=== PATIENT | male | born 1950 | race African-American/Black ===

== ENCOUNTER 2024-06-30 04:31 | Inpatient (IN) | payer MEDICARE, SELFPAY ==
[2024-06-29 21:56] VITALS: BP 138/96
[2024-06-29 22:22] LABS: % Basophils 0.3 % (0-2); % Eosinophils 1.7 % (0-6); % Immature Granulocytes 0.5 % (0-0.5); % Monocytes 6.4 % (1.7-9.3); % Neutrophils 77.1 % (42.2-75.2); Absolute Eosinophils 0.2 10^3/uL (0-0.7); Absolute Lymphocytes 1.2 10^3/uL (1.2-3.4); Absolute Monocytes 0.6 10^3/uL (0.1-0.6); Absolute Neutrophils 6.7 10^3/uL (1.4-6.5); Hematocrit 33.4 % (39.0-52.0); Hemoglobin 11.5 g/dL (13.0-18.0); Mean Corp Hgb Conc. 34.4 g/dL (33.0-37.0); Mean Corpuscular Hgb 28.4 pg (27.0-31.0); Mean Corpuscular Volume 82.5 fL (80.0-94.0); Mean Platelet Volume 9.3 fL (7.4-10.4); Nucleated Red Blood Cells % 0 % (-); Platelet Count 357 10^3/uL (130-400); Red Blood Cell Count 4.05 10^6/uL (4.70-6.10); White Blood Cell Count 8.7 10^3/uL (4.8-10.8)
[2024-06-29 22:34] LABS: Lactic Acid 0.9 mmol/L (0.7-2.0)
[2024-06-29 22:49] LABS: ALT (SGPT) 14 U/L (0-50); AST (SGOT) 21 U/L (17-59); Albumin 3.8 g/dl (3.5-5.0); Alkaline Phosphatase 117 U/L (38-126); Blood Urea Nitrogen 58 mg/dl (9-20); Calcium 8.5 mg/dl (8.4-10.2); Carbon Dioxide 27 mmol/L (22-30); Chloride 95 mmol/L (98-107); Glucose 394 mg/dl (70-99); Sodium 132 mmol/L (135-145); Total Bilirubin 0.4 mg/dl (0.2-1.3); Total Protein 7.2 g/dl (6.3-8.2); eGFR 24.94
[2024-06-30] VITALS (12 sets, daily range): BP systolic 126–162; BP diastolic 74–91; PULSE 83; O2SAT 99; BMI 27.1; BMI 25.6
[2024-06-30 01:34] LABS: Glucose - Point of Care 341 mg/dl (70-99)
--- NOTE | 2024-06-30 02:58 | ED.GENMED ---
History of Present Illness
General
Chief Complaint: Skin Problem
Source: patient and ambulance crew
Exam Limitations: none
Time Seen by Provider: 06/30/24 02:15
Nursing documentation reviewed up to this point in time: agreed with
History of Present Illness
History of Present Illness:
This is a 73-year-old gentleman who resides at home, alone. He has a longstanding history of insulin requiring diabetes, maintained [facility] L[facility]
He admits to neglecting follow-up with the [facility] for at least a year, has has not had routine blood work in at least a year.
He does continue to drive but only short distances to and from the grocery store.
He has history of left BKA perhaps 2 to [address] [facility]. No recurrent hospitalizations since then.
He admits to sporadically missing his insulin and presents via EMS with complaints of right lower leg wounds that began perhaps a week or 2 ago. He admits to moderate pain, has not had a fever.
No recent falls.
He denies chest pain no cough no shortness of breath. He denies dizziness nor lightheadedness.
Appetite has been fair.
He denies dysuria and urgency nor difficulty urinating. He denies abdominal pain. He states he passed a normal bowel movement yesterday.
He presents via EMS. Blood sugar elevated over 400 prehospital.
Past History
Past History
ED Past Medical History: IDDM
ED Past Surgical History: Orthopedic (Left BKA)
Social History
Tobacco: Non-smoker
Alcohol: None
Drug: None
Living: alone
Employment: Retired
Phy Exam
Physical Exam
Physical Exam:
GENERAL: 73-year-old gentleman appears his stated age, awake and alert, pleasant, appears in no acute distress.
EYE: pupils equal and reactive. anicteric
NECK: Supple, nontender, no meningismus, no significant adenopathy.
ENT: oral mucosa is moist. No rhinorrhea.
CARDIAC: Regular rate and rhythm. no murmur.
LUNGS: Clear breath sounds bilaterally, no acute respiratory distress, no wheezes/rales/rhonchi
ABDOMEN: Soft, nondistended, without focal tenderness, bladder is significantly distended to the level of umbilicus, bladder is nontender. No r/g, no cvat. normoactive BS.
NEUROLOGICAL: Alert and oriented x3, no focal neuro deficits.
SKIN: Warm and dry, normal color, there is a global confluent erythematous minimally scaly rash that encompasses the groin, phallus, bilateral anterior to medial thighs. There is superficial ulcerated wounds to the right anterior lower leg and
anterior ankle.
MUSCULOSKELETAL: Left BKA�stump is clean and dry. Right dorsalis pedis pulse is present.
PSYCH: Normal and appropriate interaction.
Course
Orders/Labs/Results
Orders:
Orders
06/29/24 22:00
Electrocardiogram (*1) Urgent
Reason for Study: Other
Other Reason for Exam: Possible Sepsis
EKG- Treatment ONCE
06/29/24 22:16
Complete Blood Count/With Diff Urgent
Comprehensive Metabolic Panel Urgent
Lactic Acid Stat
06/30/24 02:30
Dominique Placement- Treatment ONCE
Reason for insertion: Outlet obstruction
06/30/24 02:31
Add On- LAB Urgent
Tests Added?: HgbA1c
06/30/24 02:58
Urinalysis Reflex To Culture Urgent
Date Specimen was Collected: 06/30/24
Time Specimen was Collected: 02:52
Urine Microscopic Reflex Cult Urgent
Urine Culture Urgent
KAYLEE Source: U
Specimen Description:
Date Specimen was Collected: 06/30/24
Time Specimen was Collected: 02:52
06/30/24 03:09
Cardiac Monitoring- Treatment ONCE
Calcium Gluconate 1,000 mg IV NOW STA
Dextrose 50%-Water [Dextrose 50% Syringe] 12.5 grams IV [id number] PRN
Insulin Human Regular [Novolin R] 5 units IV NOW STA
Sodium Bicarbonate 50 meq IV NOW STA
06/30/24 03:11
Bedside Glucose PRE IV Insulin- HyperK+ NOW
06/30/24 04:17
Admit/Transfer Patient As Directed
Co-Sign Provider:
Level of Care: Inpatient admission
Assign to:: Telemetry
Physician / Group: Mikael
Diagnosis: LINDA, Urinary Retention, LE Wounds/ Cellulitis
Reason for Telemetry: Arrhythmia
Date to Stop Telemetry: 07/03/24
Time to Stop Telemetry: 11:00
Reason for Hospitalization: LINDA, Urinary Retention, LE Wounds/ Cellulitis
Expected length of stay greater than two midnights?: Yes
ELOS- Estimated Length of Stay in days: 4
I certify the patient meets the requirements for IP care: Yes
PRN Pain Medication Management As Directed
May give lesser potent ordered pain med per pt: Yes
preference::
Protocol:: Medication orders for pain may be administered in a
manner that supports deferring to patient preference
when the pt is:
- Requesting an ordered lesser potent pain medication.
Least to most potent pain medications are defined
as: acetaminophen < NSAID < tramadol < opioids
(morphine, oxycodone, hydromorphone).
- Requesting a lesser dose of the same medication IF
ORDERED.
- Requesting a less intrusive route of administration
if both routes are prescribed by the provider (PO <
IV).
06/30/24 04:18
Code Status As Directed
Resuscitation Status: Full Code
06/30/24 04:41
Bedside Glucose POST IV Insulin- HyperK+ Q1HX2,Q2HX2
06/30/24 04:54
0.9% Sodium Chloride 1000 ml [Nss] 1,000 ml IV 150 mls/hr
Acetaminophen [Tylenol] 650 mg PO Q4HPRN PRN
Dextrose 50%-Water [Dextrose 50% Syringe] 12.5 grams IV [id number] PRN
Glucagon [GlucaGen] 1 mg IM PRN PRN
Ondansetron Injectable [Zofran] 4 mg IV Q6HPRN PRN
Polyethylene Glycol Powder [Miralax] 17 grams PO DAILY PRN
06/30/24 04:54
UROLOGY CONSULT Routine
Consulting Provider: Shahriar Alcaraz
Was physician already notified: Yes
Comment: Urinary retention
WOUND/OSTOMY CONSULT Routine
Reason for Consult: RLE Wounds
Activity As Directed
Activity Level: Ambulate
With Assistance
Bedside Glucose Monitoring As Directed
Frequency: AC&HS
Additional Instructions:: Change to q6h if pt on TPN, tube feeding or not eating
EKG with chest pain [ECG as needed] As Directed
ECG as needed for:: Chest Pain
Dominique Catheter [Catheter- Indwelling] As Directed
Reason for insertion: Acute Retention
Discontinue Date/Time: 07/03/24 0600
I/O [Intake/ Output] As Directed
Frequency: Per unit guidelines
Vital Signs As Directed
Frequency: Per unit guidelines
Weight As Directed
Frequency: Daily
Oxygen Therapy [O2 Therapy] [RESP] Routine
Titrate/Wean O2 to maintain O2 sat greater than (%): 94
Ot Eval And Treat Routine
PT Consult [Pt Eval And Treat] Routine
Activity Level: Ambulate
With Assistance
DX Deep Vein Thrombosis Video Routine
06/30/24 05:00
Flush (0.9% Sodium Chloride) [Flush (Nss)] See Dose Instructions IV PER PROTOCOL
06/30/24 05:50
Basic Metabolic Panel IN AM
Complete Blood Count/No Diff IN AM
Glycohemoglobin (HgbA1c) IN AM
TSH Reflex To Free T4 Routine
06/30/24 Breakfast
2000 calorie (17 carb) Diabetic
At Your Request: Limited Participation
Does patient need a safe tray?: No
Piperacillin/Tazo 2.25 Gram [Zosyn] 2.25 grams in 50 ml IV Q6H
06/30/24 07:30
Insulin Aspart Corrective Low [Novolog Flexpen-Low Resistance] See Protocol SC AC
06/30/24 08:00
Heparin 5,000 units SC Q12
Insulin Aspart Pen [Novolog Flexpen] 8 units SC MEALS
Miconazole Nitrate [Desenex/Mitrazol/Zeasorb] See Dose Instructions TOPICAL BID
Tamsulosin [Flomax] 0.4 mg PO DAILY
07/03/24 11:00
DC Protocol for Telemetry ONCE
Abnormal Lab Results
06/29/24 06/30/24 06/30/24
22:16 01:31 02:58
RBC 4.05 L 10^6/uL
(4.70-6.10)
Hgb 11.5 L g/dL
(13.0-18.0)
Hct 33.4 L %
(39.0-52.0)
Absolute Neuts (auto) 6.7 H 10^3/uL
(1.4-6.5)
Neutrophils % 77.1 H %
(42.2-75.2)
Lymphocytes % 14.0 L %
(20.5-51.1)
Sodium 132 L mmol/L
(135-145)
Potassium 6.0 H mmol/L
(3.5-5.1)
Chloride 95 L mmol/L
(98-107)
BUN 58 H mg/dl
(9-20)
Creatinine 2.6 H mg/dL
(0.7-1.3)
Glucose 394 H mg/dl
(70-99)
Ur Occult Blood Reflex 2+ A
(Negative)
Urine RBC 3-6 A /HPF
(0-2)
Urine Bacteria (Reflex) Moderate A
(Negative)
Urine Glucose 4+ A
(Negative)
Urine Albumin (Reflex) 2+ A
(Neg - Trace)
POC Glucose 341 H mg/dl
(99)
06/30/24
03:27
RBC
Hgb
Hct
Absolute Neuts (auto)
Neutrophils %
Lymphocytes %
Sodium
Potassium
Chloride
BUN
Creatinine
Glucose
Ur Occult Blood Reflex
Urine RBC
Urine Bacteria (Reflex)
Urine Glucose
Urine Albumin (Reflex)
POC Glucose 333 H mg/dl
()
06/29/24 22:16
06/29/24 22:16
Vital Signs
Initial and Last Documented VS:
Initial Vital Signs
Temp Pulse Resp BP Pulse Ox
98.6 F 91 16 138/96 100
06/29/24 21:56 06/29/24 21:56 06/29/24 21:56 06/29/24 21:56 06/29/24 21:56
Last Documented Vital Signs
Temp Pulse Resp BP Pulse Ox
97.8 F 90 13 155/91 98
06/30/24 01:29 06/30/24 06:00 06/30/24 06:00 06/30/24 06:00 06/30/24 03:15
MDM/Problems Addressed
Differential Diagnosis Includes:
Patient presents with poorly controlled insulin requiring diabetes.
[facility] and I suspect related to transportation issues.
He presents with multiple superficial wounds to his right anterior lower leg, however foot is warm and palpable dorsalis pedis pulse.
Exam is also notable for significantly distended bladder, nontender abdomen. Bladder scan reveals greater than 2000 cc in the bladder consistent with physical exam.
Labs are notable for normal white blood cell count, mild anemia.
Creatinine elevated at 2.6 with BUN of 58. Elevated potassium of 6.0 and elevated glucose 394 without acidosis.
I have no old labs to compare but I have significant concern that acute kidney injury is related to bladder outlet obstruction. Other consideration is an element of diabetes related chronic kidney disease.
EKG shows normal sinus rhythm, minimally peaked T waves anteriorly, otherwise unremarkable.
Will plan for Dominique catheter placement.
Along with Dominique catheter we will treat acute hyperkalemia with IV insulin, bicarb and calcium.
Will initiate IV antibiotics for potential cellulitis of right lower extremity wounds.
Due to transportation insecurity, inability for prompt follow-up as well as what appears to be acute kidney injury, hyperkalemia patient is at risk for further deterioration thus requires acute hospitalization.
Chronic conditions affecting care: DM
Acute Exacerbation and/or Progression of Chronic Illness: DM
*Pulse Oximetry
Patient hypoxic: no
*EKG
Interpreted by ED Provider?: Yes
Interpretation: normal
Comparison EKG: no comparison EKG present
Rate: normal
Rhythm: sinus
[place]: left axis deviation
Interval: normal interval
QRS Pattern: poor R-wave progression
Ischemia: other (Mildly peaked T waves anteriorly)
*Digital Photo Printer Interpretation
Rate: normal
Interpretation: normal
Rhythm: sinus
*Critical Care Note
Total Time (30-74mins, 75-104mins- exclusive of procedures): Not Applicable
Patient Management
Social determinants of health affecting care: Financial situation, Poor outpatient follow-up and Poor social support
ED Attending Note
-
Portions of this chart may have been created with voice recognition software.� Occasional wrong word or��sound alike� substitutions may have occurred due to the inherent limitations of voice recognition software.
Discharge Plan
Departure
Patient Disposition: Admit
Date of Disposition: 06/30/24
Time of Disposition: 03:16
Admit to: Telemetry
Admit to doctor: Mikael
Presentation/result/management discussed w/ accepting MD/DO: Hospitalist
Condition: Serious
Discharge Problem:
poorly controlled IRDM, LINDA with hyperkalemia, acute vs chronic urinary retention, ulcerated wounds RLE, Candidiasis of genitalia
Interventions
Interventions:
*Risk Screen - Suicide Last Done: 06/29/24 21:56
*General Assessment Last Done: 06/30/24 01:29
*Neglect/Abuse Screening Last Done: 06/29/24 21:56
*ED COVID-19 Vaccine History Last Done: 06/30/24 01:29
ED-Skin Assessment Last Done: 06/30/24 01:57
[2024-06-30 03:28] LABS: Glucose - Point of Care 333 mg/dl (70-99)
[2024-06-30] MEDS: NOVOLIN R 5 UNITS IV (03:29)
[2024-06-30] MEDS: SODIUM BICARBONATE 50 MEQ IV (03:29)
[2024-06-30] MEDS: CALCIUM GLUCONATE 1000 MG IV (03:29)
[2024-06-30 03:59] LABS: Urine Albumin 2+ (Neg - Trace); Urine Bilirubin Negative (Negative); Urine Character Clear (Clear); Urine Color Yellow; Urine Glucose 4+ (Negative); Urine Ketone Negative (Negative); Urine Leukocyte Negative (Negative); Urine Nitrite Negative (Negative); Urine Occult Blood 2+ (Negative); Urine Specific Gravity 1.015 (<1.030); Urine Urobilinogen Negative (Neg - 1+)
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
[2024-06-30 04:40] LABS: Urine Squamous Cell 0-2 /LPF (Few)
[2024-06-30 04:42] LABS: Urine Amorphous Seen
[2024-06-30 04:43] LABS: Urine Bacteria Moderate (Negative)
[2024-06-30 04:44] LABS: Glucose - Point of Care 157 mg/dl (70-99)
--- NOTE | 2024-06-30 05:36 | EDRN ---
Wounds [facility] [employer]
Right Lower Extremity:
Ant lateral lozano: 16.5x10 cm
st 2 beefy w/ slough
Ant Lozano 2.5x6cm
st2 beefy red
ant ankle 10x7cm
st2 beefy red
dorsal foot 4x3cm
st2 beefy red
medial ankle 3x3cm
st2 Beefy red w/ slough and unstagble
lateral ankle 3x2cm
st2 Beefy red w/ slough and unstagable
2x blisters anterior ankle
Left Lower Extremity:
BKA
Post calf 3x1.5cm
distal amp stump: 5 scattered 0.5x0.5cm pucture like wounds stage 2
[2024-06-30 05:51] LABS: Glucose - Point of Care 151 mg/dl (70-99)
[2024-06-30] MEDS: ZOSYN 50 IV ×4 (05:53→23:22)
[2024-06-30] MEDS: NSS 1000 IV ×3 (05:54→18:45)
[2024-06-30 06:04] LABS: Hematocrit 29.6 % (39.0-52.0); Hemoglobin 10.6 g/dL (13.0-18.0); Mean Corp Hgb Conc. 35.8 g/dL (33.0-37.0); Mean Corpuscular Volume 80.9 fL (80.0-94.0); Mean Platelet Volume 9.8 fL (7.4-10.4); Platelet Count 317 10^3/uL (130-400); Red Blood Cell Count 3.66 10^6/uL (4.70-6.10); Red Cell Dist. Width 12.6 % (11.5-14.5); White Blood Cell Count 10.1 10^3/uL (4.8-10.8)
[2024-06-30 06:23] LABS: Blood Urea Nitrogen 61 mg/dl (9-20); Calcium 9.2 mg/dl (8.4-10.2); Carbon Dioxide 25 mmol/L (22-30); Chloride 100 mmol/L (98-107); Estimated Creatinine Clearance 30 ml/min; Glucose 162 mg/dl (70-99); Sodium 133 mmol/L (135-145); eGFR 28.89
[2024-06-30 06:53] LABS: TSH Reflex To Free T4 2.19 uIU/ml (0.47-4.68)
[2024-06-30 07:49] LABS: Glucose - Point of Care 164 mg/dl (70-99)
[2024-06-30] MEDS: HEPARIN 5000 UNITS SC ×2 (08:07→20:33)
[2024-06-30] MEDS: FLOMAX 0.4 MG PO (08:08)
[2024-06-30] MEDS: DESENEX/MITRAZOL/ZEASORB 1 APPLIC TOPICAL ×2 (08:09→20:32)
[2024-06-30] MEDS: LANTUS 0.2 UNITS SC (09:49)
[2024-06-30] MEDS: NOVOLOG FLEXPEN-LOW RESISTANCE 1 UNITS SC (09:51)
[2024-06-30 09:56] LABS: Glucose - Point of Care 159 mg/dl (70-99)
[2024-06-30] MEDS: NOVOLOG FLEXPEN 8 UNITS SC ×2 (09:58→13:03)
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
[2024-06-30 11:44] LABS: Glycohemoglobin (HgbA1c) 14.5 % (4.0-5.6)
--- NOTE | 2024-06-30 12:08 | WOUNDNOTE ---
LEFT STUMP WOUND
--- NOTE | 2024-06-30 12:08 | WOUNDNOTE ---
RIGHT LOWER LEG
--- NOTE | 2024-06-30 12:08 | WOUNDNOTE ---
RIGHT LOWER LEG
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
--- NOTE | 2024-06-30 12:12 | PN.DE ---
Diabetes Education
- -
06/30/24 Diabetes Education Consult
Patient admitted with RLE wounds. PMH L BKA s/p aguila, diabetes. Prior to admission was ordered novolog 10 units AC and lantus 20 units @ hs. A1C 14.5%, cr 2.3, eGFR 28.89.
Patient is awake alert and oriented able to discuss diabetes care. States he has not been taking care of his diabetes, often skips his insulin and has not been checking his glucose. He states he has a monitor and supplies but just has not been
attentive.
I discussed with him the importance of testing his glucose before each meal and HS and taking his novolog 5 to 10 minutes before each meal. He verbalized understanding.
I spoke with attending who will manage glucose and insulin at this time.
Will return to reinforce importance of glucose control to prevent further complications.
[2024-06-30 12:35] LABS: Glucose - Point of Care 286 mg/dl (70-99)
--- NOTE | 2024-06-30 12:49 | W.PN.URO.CBU ---
Today's Communication / Plan
-
teach pt bryson care please
Assessment / Plan
-
keep bryson home with bryson
Diagnosis
-
Date of Service: June 30, 2024
-
Patient Diagnosis:
chronic retention in iddm male 73 yr of age 2200cc drained with bryson pt unaware of problem
Post Op Day:
Subjective
-
cellulits leg no gu problems
Objective
-
Vital Signs
Temp Pulse Resp BP Pulse Ox
97.8 F 81 16 126/78 98
06/30/24 01:29 06/30/24 10:45 06/30/24 10:45 06/30/24 08:00 06/30/24 03:15
Intake and Output
06/29/24 06/30/24 07/01/24
06:59 06:59 06:59
Output Total 3325 / 3325 600 / 600
Balance -3325 / -3325 -600 / -600
Output:
Urine, Bryson 3325 / 3325
Urine, Voided 600 / 600
Laboratory Results
06/30/24 05:50
06/30/24 05:50
Review of Systems
-
: Difficulty Voiding
Physical Exam
-
General - well developed, well nourished, no acute distress
Chest - clear bilaterally
Abdomen - soft, non-tender, positive bowel sounds, no CVAT, no incisional pain or distention
Genitalia - normal
Rectal - normal
Skin - warm & dry with no rash
Neuro - AOx3, no motor deficits
Extremities - no clubbing, no cyanosis, no edema
Incision - clean, dry
Dressing - clean, dry, intact
Care Review
Data Reviewed
Discussed with: Hospitalist and Nursing
CT Scan: Image Pers Reviewed
[2024-06-30] MEDS: NOVOLOG FLEXPEN-LOW RESISTANCE 3 UNITS SC ×2 (13:02→17:48)
[2024-06-30 16:36] LABS: Glucose - Point of Care 263 mg/dl (70-99)
[2024-06-30] MEDS: NOVOLOG FLEXPEN 11 UNITS SC (17:48)
[2024-06-30] MEDS: NORVASC 5 MG PO (17:49)
[2024-06-30 23:08] LABS: Glucose - Point of Care 99 mg/dl (70-99)
[2024-07-01] VITALS (7 sets, daily range): BP systolic 138–160; BP diastolic 77–88; BMI 25.7
[2024-07-01] MEDS: NSS 1000 IV ×3 (03:06→17:52)
[2024-07-01] MEDS: ZOSYN 50 IV ×3 (05:10→17:51)
[2024-07-01 07:02] LABS: Hematocrit 26.3 % (39.0-52.0); Hemoglobin 9.2 g/dL (13.0-18.0); Mean Corpuscular Hgb 28.9 pg (27.0-31.0); Mean Corpuscular Volume 82.7 fL (80.0-94.0); Mean Platelet Volume 9.9 fL (7.4-10.4); Platelet Count 290 10^3/uL (130-400); Red Blood Cell Count 3.18 10^6/uL (4.70-6.10); Red Cell Dist. Width 12.9 % (11.5-14.5); White Blood Cell Count 8.5 10^3/uL (4.8-10.8)
--- NOTE | 2024-07-01 07:21 | PN.DE ---
Diabetes Education
- -
07/01/24: Diabetes Education Follow Up.
Patient admitted with RLE wounds. PMH: L BKA s/p aguila, and T2DM.
Prior to admission was ordered NovoLog 10 units AC and Lantus 20 units @ hs. A1C 14.5%, cr 2.3, eGFR 28.89.
Patient is awake alert, oriented, sitting up in bed, offers no complaints, able to discuss diabetes care.
Pt seen in followup of diabetes education. States he has no questions at this time and is aware of what he needs to do once discharged home.
Asked pt what times he would be monitoring his glucose and take his insulin, he states he has no questions at this time.
Discussed the importance of testing his glucose before each meal and HS and taking his NovoLog 5 to 10 minutes before each meal. He verbalized understanding.
It is noted that pt often skips his insulin and has not been checking his glucose. He states he has a monitor and supplies but just has not been attentive.
Emphasized the importance of optimal glucose control to prevent any further short and usp complications.
Discussed diabetes management and attending physician states will manage glucose and insulin at this time.
[2024-07-01 07:25] LABS: Blood Urea Nitrogen 35 mg/dl (9-20); Calcium 8.2 mg/dl (8.4-10.2); Carbon Dioxide 25 mmol/L (22-30); Chloride 104 mmol/L (98-107); Estimated Creatinine Clearance 38 ml/min; Glucose 106 mg/dl (70-99); Magnesium 1.8 mg/dl (1.6-2.3); Phosphorus 3.3 mg/dl (2.5-4.5); Potassium 4.7 mmol/L (3.5-5.1); Sodium 136 mmol/L (135-145); eGFR 38.77
[2024-07-01 07:33] LABS: Glucose - Point of Care 111 mg/dl (70-99)
[2024-07-01] MEDS: HEPARIN 5000 UNITS SC (08:10)
[2024-07-01] MEDS: FLOMAX 0.4 MG PO (08:10)
[2024-07-01] MEDS: NORVASC 5 MG PO (08:10)
[2024-07-01] MEDS: NOVOLOG FLEXPEN 11 UNITS SC ×2 (08:16→13:10)
[2024-07-01] MEDS: LANTUS 0.2 UNITS SC (08:16)
[2024-07-01] MEDS: NOVOLOG FLEXPEN-LOW RESISTANCE SC ×3 (08:17→16:06)
[2024-07-01] MEDS: HYDROPHOR 1 APPLIC TOPICAL (08:20)
[2024-07-01] MEDS: DESENEX/MITRAZOL/ZEASORB 1 APPLIC TOPICAL ×2 (08:20→21:00)
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
[2024-07-01 11:49] LABS: Glucose - Point of Care 107 mg/dl (70-99)
--- NOTE | 2024-07-01 12:33 | W.PN.URO.CBU ---
Today's Communication / Plan
-
teach bryson leg bag care
Assessment / Plan
-
keep bryson home with bryson
Diagnosis
-
Date of Service: July 01, 2024
-
Patient Diagnosis:
Post Op Day:
Patient Diagnosis:
chronic retention in iddm male 73 yr of age 2200cc drained with bryson pt unaware of problem
Post Op Day:
Subjective
-
no gu complaints
Objective
-
Vital Signs
Temp Pulse Resp BP Pulse Ox
98.3 F 81 18 156/85 99
07/01/24 08:09 07/01/24 08:09 07/01/24 08:09 07/01/24 08:09 07/01/24 08:09
Intake and Output
06/30/24 07/01/24 07/02/24
06:59 06:59 06:59
Intake Total 960 / 960 50 / 50
Output Total 3325 / 3325 4650 / 4650 1800 / 1800
Balance -3325 / -3325 -3690 / -3690 -1750 / -1750
Intake:
Oral fluids 960 / 960
IV piggybacks 50 / 50
Output:
Urine, Bryson 3325 / 3325 2850 / 2850 1800 / 1800
Urine, Voided 1800 / 1800
Laboratory Results
07/01/24 06:24
07/01/24 06:24
Review of Systems
-
: Difficulty Voiding
Physical Exam
-
General - well developed, well nourished, no acute distress
Chest - clear bilaterally
Abdomen - soft, non-tender, positive bowel sounds, no CVAT, no incisional pain or distention
Genitalia - normal
Rectal - normal
Skin - warm & dry with no rash
Neuro - AOx3, no motor deficits
Extremities - no clubbing, no cyanosis, no edema
Incision - clean, dry
Dressing - clean, dry, intact
Care Review
Data Reviewed
Discussed with: Nursing
--- NOTE | 2024-07-01 14:59 | PN.CDI ---
CDI
- -
CDI:
Physician Documentation Request
Admit Date: 06/30/24 04:31
Dear Doctor Do,
Clinical Indicators:
Patient admitted with RLE wounds/cellulitis.
06/30 [facility] RN skin/wound assessment: Left Stump Stage 2 Pressure Injury POA
Treatment: Silicone border foam dressing
Physician documentation of the type and location of wounds is required for compliant documentation. Based on the above clinical findings and your assessment, please provide the following in your progress note:
1. Location of the ulcer/wound, including laterality.
2. Type (etiology) of ulcer/wound:
- Pressure (decubitus) ulcer
- Other
3. If a pressure ulcer, please also include the stage* of the ulcer:
- Stage 1 - Skin intact, non-blanchable redness
- Stage 2 - Partial thickness loss of dermis, includes intact or open blister
- Stage 3 - Full thickness tissue not including bone, tendon or muscle
- Stage 4 - Full thickness tissue loss, including exposed bone, tendon or muscle
- Unstageable - Full thickness loss in which the base of the ulcer is covered by slough (yellow, guadalupe, vargas, green or brown) and/or eschar (guadalupe, brown or black) in the wound bed.
- Unable to determine
Use of terms such as suspected, likely, concern for, or probable (associated with a specific diagnosis that is being evaluated, monitored, or treated as if it exists) are acceptable and can be coded in the inpatient setting, when documented at the
time of discharge.
Thank you,
Sasha Lewis RN BSN
CDI Specialist
available via tiger text
Please use your independent medical judgment in providing your response.
*Source: National Pressure Ulcer Advisory Panel (NPUAP)
[2024-07-01 16:05] LABS: Glucose - Point of Care 61 mg/dl (70-99)
[2024-07-01 16:22] LABS: Glucose - Point of Care 74 mg/dl (70-99)
[2024-07-01 16:40] LABS: Glucose - Point of Care 213 mg/dl (70-99)
[2024-07-01] MEDS: NOVOLOG FLEXPEN SC (17:24)
[2024-07-01] MEDS: LOVENOX 40 MG SC (17:52)
[2024-07-01 18:04] LABS: Glucose - Point of Care 144 mg/dl (70-99)
[2024-07-01] MEDS: NOVOLOG FLEXPEN 8 UNITS SC (18:04)
[2024-07-01 19:21] LABS: Glucose - Point of Care 125 mg/dl (70-99)
[2024-07-01 22:13] LABS: Glucose - Point of Care 161 mg/dl (70-99)
[2024-07-02] MEDS: ZOSYN 50 IV ×5 (00:39→23:14)
[2024-07-02 03:00] VITALS: BP 155/83
[2024-07-02 03:04] LABS: Glucose - Point of Care 247 mg/dl (70-99)
[2024-07-02 06:00] VITALS: BMI 26.5
[2024-07-02 06:28] LABS: Hematocrit 26.4 % (39.0-52.0); Hemoglobin 8.9 g/dL (13.0-18.0); Mean Corp Hgb Conc. 33.7 g/dL (33.0-37.0); Mean Corpuscular Hgb 28.1 pg (27.0-31.0); Mean Corpuscular Volume 83.3 fL (80.0-94.0); Mean Platelet Volume 9.6 fL (7.4-10.4); Platelet Count 280 10^3/uL (130-400); Red Blood Cell Count 3.17 10^6/uL (4.70-6.10); Red Cell Dist. Width 13.1 % (11.5-14.5); White Blood Cell Count 8.2 10^3/uL (4.8-10.8)
[2024-07-02 06:51] LABS: Blood Urea Nitrogen 22 mg/dl (9-20); Calcium 7.7 mg/dl (8.4-10.2); Carbon Dioxide 25 mmol/L (22-30); Chloride 101 mmol/L (98-107); Estimated Creatinine Clearance 49 ml/min; Glucose 261 mg/dl (70-99); Potassium 4.4 mmol/L (3.5-5.1); Sodium 133 mmol/L (135-145); eGFR 52.41
[2024-07-02 08:15] VITALS: BP 160/84
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
[2024-07-02] MEDS: FLOMAX 0.4 MG PO (08:56)
[2024-07-02] MEDS: NORVASC 5 MG PO (08:56)
[2024-07-02] MEDS: NSS 1000 IV ×2 (08:58→23:14)
[2024-07-02] MEDS: LANTUS 0.2 UNITS SC (08:59)
[2024-07-02] MEDS: NOVOLOG FLEXPEN 8 UNITS SC ×3 (09:00→18:19)
[2024-07-02] MEDS: MIRALAX 17 GRAMS PO (09:00)
[2024-07-02] MEDS: NOVOLOG FLEXPEN-LOW RESISTANCE 2 UNITS SC (09:03)
[2024-07-02] MEDS: DESENEX/MITRAZOL/ZEASORB 1 APPLIC TOPICAL ×2 (09:03→21:09)
[2024-07-02 09:04] LABS: Iron 38 ug/dl (49-181)
[2024-07-02] MEDS: HYDROPHOR 1 APPLIC TOPICAL (09:04)
[2024-07-02 09:06] LABS: Glucose - Point of Care 248 mg/dl (70-99)
[2024-07-02 09:14] LABS: Percent Saturation 16 % (20-50); Total Iron Binding Capacity 230 ug/dl (261-462)
[2024-07-02 11:49] LABS: Ferritin 48.3 ng/ml (17.9-464.0)
--- NOTE | 2024-07-02 12:01 | CM ---
Met with patient at bedside. He reports he lives [place] [facility] that has 12 steps to access. There is one rail on steps. He has a cane and rolling walker.
He drives. He has shower seat but no rails.
He has history of L BKA.
He has been to [facility] in past.
Discussed recommendation for snf rehab. Gave him Medicare comparison and ratings for [facility], [facility] and [facility] near him. Also gave 3 near his dgtr in [place]. Left for dgtr.
He [facility] not [facility] to [facility] for [facility] but has a VA PCP in [place]. FOr pharmacy he [facility] uses [facility] bu primarily uses [facility] [place].
PLAN:SNF Rehab.
[2024-07-02 12:03] VITALS: BP 134/72
[2024-07-02 12:18] LABS: Glucose - Point of Care 134 mg/dl (70-99)
[2024-07-02 12:20] LABS: Folate 7.9 ng/ml (2.76-20); Vitamin B12 401 pg/ml (239-931)
[2024-07-02] MEDS: NOVOLOG FLEXPEN-LOW RESISTANCE SC ×2 (12:28→18:20)
[2024-07-02 15:28] VITALS: BP 145/81
[2024-07-02] MEDS: FEOSOL 325 MG PO (15:52)
[2024-07-02 16:26] LABS: Glucose - Point of Care 103 mg/dl (70-99)
[2024-07-02] MEDS: LOVENOX 40 MG SC (18:20)
[2024-07-02 19:13] VITALS: BP 157/81
[2024-07-02 21:30] LABS: Glucose - Point of Care 153 mg/dl (70-99)
[2024-07-02 23:42] VITALS: BP 163/85
[2024-07-03 03:20] VITALS: BP 155/85
[2024-07-03 05:26] VITALS: BMI 26.2
[2024-07-03] MEDS: ZOSYN 50 IV ×4 (06:34→23:18)
[2024-07-03 07:39] LABS: Hematocrit 27.1 % (39.0-52.0); Hemoglobin 9.3 g/dL (13.0-18.0); Mean Corp Hgb Conc. 34.3 g/dL (33.0-37.0); Mean Corpuscular Hgb 28.4 pg (27.0-31.0); Mean Corpuscular Volume 82.9 fL (80.0-94.0); Mean Platelet Volume 9.2 fL (7.4-10.4); Platelet Count 277 10^3/uL (130-400); Red Blood Cell Count 3.27 10^6/uL (4.70-6.10); Red Cell Dist. Width 13.1 % (11.5-14.5); White Blood Cell Count 7.6 10^3/uL (4.8-10.8)
[2024-07-03 07:43] LABS: Glucose - Point of Care 269 mg/dl (70-99)
[2024-07-03 07:54] LABS: Blood Urea Nitrogen 17 mg/dl (9-20); Calcium 7.9 mg/dl (8.4-10.2); Carbon Dioxide 26 mmol/L (22-30); Chloride 105 mmol/L (98-107); Estimated Creatinine Clearance 57 ml/min; Glucose 246 mg/dl (70-99); Potassium 4.5 mmol/L (3.5-5.1); Sodium 138 mmol/L (135-145); eGFR > 60.00
[2024-07-03 08:07] VITALS: BP 166/89
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
[2024-07-03] MEDS: NOVOLOG FLEXPEN-LOW RESISTANCE 3 UNITS SC (08:17)
[2024-07-03] MEDS: NOVOLOG FLEXPEN 8 UNITS SC ×3 (08:18→17:03)
[2024-07-03] MEDS: FLOMAX 0.4 MG PO (09:04)
[2024-07-03] MEDS: NORVASC 10 MG PO (09:04)
[2024-07-03] MEDS: LANTUS 0.23 UNITS SC (09:05)
[2024-07-03] MEDS: DESENEX/MITRAZOL/ZEASORB 1 APPLIC TOPICAL (09:05)
[2024-07-03] MEDS: HYDROPHOR 1 APPLIC TOPICAL (09:06)
[2024-07-03] MEDS: LANTUS SC (09:15)
[2024-07-03] MEDS: NORVASC PO (09:16)
--- NOTE | 2024-07-03 10:03 | CM ---
Addendum entered by Lorraine Saul 07/03/24 12:08:
Call received from daughter Adelita requesting update.
CM explained no responses from SNF referrals at this time.
Text to daughter, per request, with facility names, as well as Medicare nursing home compare link for review.
Original Note:
CM following re: d/c planning.
Ongoing IV abx. Wound care.
Awaiting responses from SNFs at this time.
Updated therapy notes needed for auth.
CM continuing to follow.
[2024-07-03 11:40] LABS: Glucose - Point of Care 243 mg/dl (70-99)
[2024-07-03 11:47] VITALS: BP 160/88
[2024-07-03] MEDS: NOVOLOG FLEXPEN-LOW RESISTANCE 2 UNITS SC ×2 (11:56→17:02)
[2024-07-03 16:13] VITALS: BP 146/73
[2024-07-03 16:47] LABS: Glucose - Point of Care 227 mg/dl (70-99)
[2024-07-03] MEDS: LOVENOX 40 MG SC (17:04)
[2024-07-03 21:21] LABS: Glucose - Point of Care 265 mg/dl (70-99)
[2024-07-03] MEDS: DESENEX/MITRAZOL/ZEASORB TOPICAL (21:45)
[2024-07-03 22:25] VITALS: BP 145/79
[2024-07-04] MEDS: ZOSYN 50 IV ×4 (05:38→23:24)
[2024-07-04 06:00] VITALS: BMI 26.0
[2024-07-04 07:00] LABS: Hematocrit 27.5 % (39.0-52.0); Hemoglobin 9.3 g/dL (13.0-18.0); Mean Corp Hgb Conc. 33.8 g/dL (33.0-37.0); Mean Corpuscular Hgb 28.4 pg (27.0-31.0); Mean Corpuscular Volume 84.1 fL (80.0-94.0); Mean Platelet Volume 9.4 fL (7.4-10.4); Platelet Count 298 10^3/uL (130-400); Red Blood Cell Count 3.27 10^6/uL (4.70-6.10); White Blood Cell Count 8.3 10^3/uL (4.8-10.8)
[2024-07-04 07:24] LABS: Blood Urea Nitrogen 15 mg/dl (9-20); Calcium 7.8 mg/dl (8.4-10.2); Carbon Dioxide 27 mmol/L (22-30); Chloride 102 mmol/L (98-107); Estimated Creatinine Clearance 62 ml/min; Glucose 264 mg/dl (70-99); Potassium 4.5 mmol/L (3.5-5.1); Sodium 136 mmol/L (135-145); eGFR > 60.00
[2024-07-04 08:21] VITALS: BP 144/54
[2024-07-04 08:24] LABS: Glucose - Point of Care 255 mg/dl (70-99)
[2024-07-04] MEDS: FLOMAX 0.4 MG PO (08:40)
[2024-07-04] MEDS: NORVASC 10 MG PO (08:40)
[2024-07-04] MEDS: LANTUS 0.23 UNITS SC (08:41)
[2024-07-04] MEDS: DESENEX/MITRAZOL/ZEASORB 1 APPLIC TOPICAL ×2 (08:44→21:06)
[2024-07-04] MEDS: HYDROPHOR 1 APPLIC TOPICAL (08:45)
[2024-07-04] MEDS: NOVOLOG FLEXPEN-LOW RESISTANCE 3 UNITS SC ×2 (08:47→12:18)
[2024-07-04] MEDS: NOVOLOG FLEXPEN 8 UNITS SC (08:48)
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
--- NOTE | 2024-07-04 11:06 | CM ---
Addendum entered by Hannah Tabares 07/04/24 14:42:
[facility] not able to accept due to concerns about outstanding bill.
Original Note:
Patient seen at bedside. CM called to patient daughter to review options for SNF as recommended. CM reviewed referrals and responses with daughter and she agreed to talk to patient and requested [facility], [facility], [facility], and
[facility]. CM will send additional referrals. CM will continue to follow for discharge planning needs.
Plan; SNF pending acceptance
[2024-07-04 11:47] LABS: Glucose - Point of Care 278 mg/dl (70-99)
[2024-07-04] MEDS: VANCOCIN 540 MG IV (11:48)
[2024-07-04] MEDS: NOVOLOG FLEXPEN 10 UNITS SC ×2 (12:17→17:32)
--- NOTE | 2024-07-04 12:33 | PHA.VAN.IN ---
Assessment
- Assessment
Renal Function: Unknown baseline (improving from admission 2.6--->1.1)
Concomitant Antimicrobials: pip/tazo
AUC Dosing Plan
- Dosing Variables
Dosing Weight (kg): 84
Dosing CrCl (ml/min): 62
Vd coefficient (L/kg): 0.7
- Empiric Dosing
Initial / Loading Dose: 2000 mg - given 07/04 11:48
Maintenance Regimen: 1500 mg q24h - to start 0600 07/05/24
Estimated AUC (mcg*h/mL): 476
Estimated Peak (mcg*h/mL): 34.6
Estimated Trough (mcg/ml): 10
Estimated Half Life (H): 12.4
- Monitoring
No levels ordered at this time: consider levels when pt reaches steady state
Pharmacokinetics Vancomycin I
- -
Patient Age: 73
Patient Sex: Male
Vancomycin Day #: 1
Indication: Skin And Soft Tissue
Requesting Provider: Odette
Height / Weight:
Height 5 ft 11 in
Actual Weight 84.55 kg
Pertinent Past Medical History: L BKA, DM 2
- Vital Signs / Lab Results
Temp Pulse Resp BP Pulse Ox
97.3 F 72 14 144/84 95
07/04/24 08:21 07/04/24 08:40 07/04/24 08:21 07/04/24 08:40 07/04/24 08:21
Lab Results - Hematology
07/02/24 07/03/24 07/04/24
06:04 07:15 06:33
WBC 8.2 7.6 8.3
Lab Results - Chemistry
07/02/24 07/03/24 07/04/24
06:04 07:15 06:33
BUN 22 H 17 15
Creatinine 1.4 H 1.2 1.1
Estimated Creat Clear 49 57 62
--- NOTE | 2024-07-04 13:00 | PTCARENOTE ---
Vanco infusion started in L AC. pt rang a few minutes after start of infusion complaining of intense itching in L arm. Infusion stopped and MD notified. Medication discontinued. Will continue to monitor.
[2024-07-04] MEDS: FEOSOL 325 MG PO (13:21)
--- NOTE | 2024-07-04 14:57 | WOUNDNOTE ---
R TOE TIPS (PLANTAR)
--- NOTE | 2024-07-04 14:58 | WOUNDNOTE ---
L BKA STUMP (POSTERIOR)
--- NOTE | 2024-07-04 15:00 | WOUNDNOTE ---
R CALF (UPPER MEDIAL JUST BELOW THE KNEE)
--- NOTE | 2024-07-04 15:09 | WOUNDNOTE ---
[facility] RN Note: Patient seen per GERARDO Menendez's request d/t R great toe looks 'worse'. Patient has a R great plantar toe intact blister which may be new. Patient stated he wears a R foot slipper sock during transfer to chair. R legs wounds grain cleaner. R
lateral ankle ulcer with some necrotic tissue in center. L posterior BKA stump wound smaller. +Palpable R pedal pulse. Trace pedal edema. Toes warm. R toe tip wounds stable dry black/scabbed. Skin on R heel and sacrum intact. Scrotal/groin skin
masd. Desenex being used. Patient can turn self in bed and lift RLE. Patient is on a [employer] mattress and has an air chair cushion. Appetite very good. RLE dressing were changed early am and re wrapped with Kerlix (not tight). Betadine and
dry gauze and stockinet applied to toe ulcers/blister. t/c SPD and ordered a large flat Men's surgical shoe for R foot when out of bed. Updated Dr. Pino re: R plantar great toe with new appearing blister, Dr. Pino approved local care including
adding prn Santyl to R lateral ankle ulcer and flat surgical shoe R foot when out of bed; recommend podiatry consult; Dr. Pino to consider routine podiatry consult. Updated GERARDO Menendez. Flat surgical shoe given. Patient's R heel off bed with pillow and
air chair cushion. Will follow as needed.
[2024-07-04 15:20] VITALS: BP 145/86
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
[2024-07-04 17:13] LABS: Glucose - Point of Care 212 mg/dl (70-99)
[2024-07-04] MEDS: LOVENOX 40 MG SC (17:33)
[2024-07-04] MEDS: NOVOLOG FLEXPEN-LOW RESISTANCE 2 UNITS SC (17:33)
[2024-07-04] MEDS: ZYVOX 600 MG PO (21:03)
[2024-07-04 22:00] LABS: Glucose - Point of Care 247 mg/dl (70-99)
[2024-07-04 23:00] VITALS: BP 158/85
[2024-07-05] MEDS: ZOSYN 50 IV ×4 (05:30→23:34)
[2024-07-05 06:00] VITALS: BMI 25.9
[2024-07-05 06:58] LABS: Hematocrit 27.1 % (39.0-52.0); Hemoglobin 9.5 g/dL (13.0-18.0); Mean Corp Hgb Conc. 35.1 g/dL (33.0-37.0); Mean Corpuscular Hgb 29.4 pg (27.0-31.0); Mean Corpuscular Volume 83.9 fL (80.0-94.0); Mean Platelet Volume 9.4 fL (7.4-10.4); Platelet Count 313 10^3/uL (130-400); Red Blood Cell Count 3.23 10^6/uL (4.70-6.10); Red Cell Dist. Width 12.9 % (11.5-14.5)
[2024-07-05 07:20] LABS: Blood Urea Nitrogen 17 mg/dl (9-20); Calcium 7.9 mg/dl (8.4-10.2); Carbon Dioxide 29 mmol/L (22-30); Chloride 101 mmol/L (98-107); Estimated Creatinine Clearance 62 ml/min; Glucose 207 mg/dl (70-99); Magnesium 1.7 mg/dl (1.6-2.3); Potassium 4.5 mmol/L (3.5-5.1); Sodium 135 mmol/L (135-145); eGFR > 60.00
[2024-07-05 07:34] VITALS: BP 149/82
[2024-07-05 07:43] LABS: Glucose - Point of Care 203 mg/dl (70-99)
[2024-07-05] MEDS: NORVASC 10 MG PO (07:50)
[2024-07-05] MEDS: FLOMAX 0.4 MG PO (07:50)
[2024-07-05] MEDS: NOVOLOG FLEXPEN-LOW RESISTANCE 2 UNITS SC ×2 (07:50→11:56)
[2024-07-05] MEDS: ZYVOX 600 MG PO ×2 (07:50→19:52)
[2024-07-05] MEDS: LANTUS 0.23 UNITS SC (07:50)
[2024-07-05] MEDS: NOVOLOG FLEXPEN 10 UNITS SC (07:51)
[2024-07-05] MEDS: HYDROPHOR 1 APPLIC TOPICAL (07:52)
[2024-07-05] MEDS: DESENEX/MITRAZOL/ZEASORB 1 APPLIC TOPICAL ×2 (07:53→19:51)
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
--- NOTE | 2024-07-05 10:57 | W.PN.UPDATE ---
Update Note
Progress Note Update
I reviewed noninvasive studies. Demonstrates possible right popliteal artery greater than 50% stenosis (mild peak systolic velocity elevation of 211 cm/s, but velocity ratio was just over 2). However, ROWAN and TBI in the right lower extremity are
preserved and within normal limits. Therefore this suggest adequacy of perfusion for wound healing. Therefore I do not think this warrants arteriogram at this point. Would defer to podiatry for definitive management of toes/foot wounds currently.
Can proceed with any debridement or other procedures with likelihood of wound healing to be very reasonable based on perfusion pressures. Will follow-up with him in the office in the outpatient setting to ensure wound healing. If still issues
could proceed with angiogram at that point, but I think at this point based on the absolute toe pressures and ankle pressures that would not be indicated.
[2024-07-05 11:30] LABS: Glucose - Point of Care 209 mg/dl (70-99)
[2024-07-05] MEDS: NOVOLOG FLEXPEN 13 UNITS SC ×2 (11:56→16:33)
[2024-07-05 12:30] VITALS: BP 136/76
[2024-07-05 14:58] VITALS: BP 145/75
--- NOTE | 2024-07-05 15:58 | CM ---
Addendum entered by Hannah Tabares 07/05/24 16:13:
CM spoke with Patient daughter and sent additional referrals to [facility], [facility], [facility], [facility], [facility]. Await responses.
Original Note:
[facility] is not able to accept patient due to pending contract with [facility]. [facility] and [facility] are pending bed availability. [facility], [facility], [facility] and [facility] are out of network. [facility] declined to accept. CM
will call to patient daughter to review options.
[2024-07-05 16:30] LABS: Glucose - Point of Care 187 mg/dl (70-99)
[2024-07-05] MEDS: NOVOLOG FLEXPEN-LOW RESISTANCE 1 UNITS SC (16:32)
[2024-07-05] MEDS: LOVENOX 40 MG SC (17:12)
[2024-07-05 22:06] LABS: Glucose - Point of Care 180 mg/dl (70-99)
[2024-07-05 23:00] VITALS: BP 147/84
[2024-07-06] MEDS: ZOSYN 50 IV ×2 (05:00→12:13)
[2024-07-06 06:00] VITALS: BMI 22.8
[2024-07-06 07:30] VITALS: BP 154/89
[2024-07-06] MEDS: DESENEX/MITRAZOL/ZEASORB 1 APPLIC TOPICAL ×2 (07:41→19:44)
[2024-07-06] MEDS: HYDROPHOR 1 APPLIC TOPICAL (07:41)
[2024-07-06] MEDS: LANTUS 0.25 UNITS SC (07:41)
[2024-07-06] MEDS: FLOMAX 0.4 MG PO (07:41)
[2024-07-06] MEDS: NORVASC 10 MG PO (07:41)
[2024-07-06] MEDS: ZYVOX 600 MG PO ×2 (07:41→19:44)
[2024-07-06 07:43] LABS: Glucose - Point of Care 157 mg/dl (70-99)
[2024-07-06] MEDS: NOVOLOG FLEXPEN 13 UNITS SC ×3 (07:46→16:55)
[2024-07-06] MEDS: NOVOLOG FLEXPEN-LOW RESISTANCE 1 UNITS SC ×3 (07:46→16:56)
[2024-07-06 08:32] LABS: Hematocrit 28.6 % (39.0-52.0); Hemoglobin 9.8 g/dL (13.0-18.0); Mean Corp Hgb Conc. 34.3 g/dL (33.0-37.0); Mean Corpuscular Hgb 28.9 pg (27.0-31.0); Mean Corpuscular Volume 84.4 fL (80.0-94.0); Mean Platelet Volume 9.3 fL (7.4-10.4); Platelet Count 355 10^3/uL (130-400); Red Blood Cell Count 3.39 10^6/uL (4.70-6.10); Red Cell Dist. Width 13.1 % (11.5-14.5); White Blood Cell Count 8.2 10^3/uL (4.8-10.8)
[2024-07-06 09:06] LABS: Blood Urea Nitrogen 16 mg/dl (9-20); Calcium 8.6 mg/dl (8.4-10.2); Carbon Dioxide 30 mmol/L (22-30); Chloride 100 mmol/L (98-107); Estimated Creatinine Clearance 61 ml/min; Glucose 155 mg/dl (70-99); Magnesium 1.7 mg/dl (1.6-2.3); Potassium 4.3 mmol/L (3.5-5.1); Sodium 135 mmol/L (135-145); eGFR > 60.00
--- NOTE | 2024-07-06 11:03 | CM ---
CM called to [facility] and spoke with Lorena in admissions. Her phone number is [phone]. Per admissions at the SNF they do have a bed but need application. MICHELL called to patient daughter and left vm with contact information and
requested that she call admissions. MICHELL also received an email with [facility] that the facility uses for admission. MICHELL will continue to follow for discharge planning needs.
Plan; SNF
[2024-07-06 11:44] LABS: Glucose - Point of Care 199 mg/dl (70-99)
[2024-07-06] MEDS: FEOSOL 325 MG PO (12:13)
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
--- NOTE | 2024-07-06 13:36 | W.PN.POD ---
Today's Communication
Today's Communication
Right LE wounds
Assessment / Plan
-
Right LE wounds - superficial
Resolving cellulitis
Stable Right digital wounds & eschars
Resolving Leg cellulitis
Type 2 Diabetes Mellitus
The hallux blister deroofed to reveal underlying superficial wound. Recommend sanyl ointment to the lateral malleolar wound and the hallux wound daily. Adaptec and DSD to leg wounds.
Offload heel in heel relief boot.
No surgical intervention required a this time.
Per ID: dc Zosyn (d8) Continue linezolid 600mg po bid (d3). At time of dc, transition to doxycycline 100mg po bid through 07/10.
Appreciate Vascular evaluation: no intervention required
Subjective
Chief Complaint
Right LE wounds
Subjective
Patient is seen at bedside resting comfortably, offers no complaints of pain.
Objective
Temp Pulse Resp BP Pulse Ox
96.8 F L 75 20 154/89 98
07/06/24 07:30 07/06/24 07:30 07/06/24 07:30 07/06/24 07:30 07/06/24 12:40
07/06/24 07:57
07/06/24 07:57
Vital Signs and Lab results were reviewed.
Physical Exam
Physical Exam
Right Lower extremity with weakly palpable pulses, atrophic changes to digits with areas of soft blister formation on distal hallux and 2nd toe. Fluid drained from hallux blister to reveal superficial fibrogranular wound beneath measuring 1.0 cm x
1.5 cm, no probe or infection. There is scant eschar present on the distal tips of 2, 3, and 4 digits. There are superficial granular wound on the anterior and lateral lower leg with some faint periwound erythema. There is some fibrotic eschar
over the lateral malleolus, no wound tracking, undermining or probe. No purulent drainage. No heel wound
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
[2024-07-06 15:20] VITALS: BP 136/76
[2024-07-06 15:47] VITALS: BP 136/76; PULSE 77; O2SAT 96
[2024-07-06 15:51] VITALS: BP 136/76; PULSE 77; O2SAT 96
--- NOTE | 2024-07-06 16:00 | PTCARENOTE ---
Rec'd pt from previous nurse. Pt denies pain. Pt with left bka, right LE dressing cdi. Pt call sabillon is within reach, pt rings shruthi. will cont to monitor.
--- NOTE | 2024-07-06 16:12 | WOUNDNOTE ---
[facility] RN note: Clarified R soft heel relief boot (i.e. TruVue lite boot) and R Hallux wound care with Dr. Hernandez. Nursing care plan and discharge instructions updated. Discussed with GERARDO kirkpatrick who confirmed she received the TruVue lite boot
for patient.
[2024-07-06 16:23] LABS: Glucose - Point of Care 186 mg/dl (70-99)
[2024-07-06] MEDS: LOVENOX 40 MG SC (18:14)
[2024-07-06 21:42] LABS: Glucose - Point of Care 295 mg/dl (70-99)
[2024-07-06 23:10] VITALS: BP 139/75
--- NOTE | 2024-07-07 01:33 | PTCARENOTE ---
Pt assessed as per flow sheet. Toes warm and moving. Pt does not c/o pain. Stated he has full sensation in his foot when assessed. No s/s of distress assessed. Will continue to monitor.
[2024-07-07 06:00] VITALS: BMI 25.1
[2024-07-07 06:15] LABS: Hematocrit 28.5 % (39.0-52.0); Hemoglobin 9.7 g/dL (13.0-18.0); Mean Corpuscular Hgb 28.4 pg (27.0-31.0); Mean Corpuscular Volume 83.6 fL (80.0-94.0); Mean Platelet Volume 8.8 fL (7.4-10.4); Platelet Count 357 10^3/uL (130-400); Red Blood Cell Count 3.41 10^6/uL (4.70-6.10); Red Cell Dist. Width 13.2 % (11.5-14.5); White Blood Cell Count 8.2 10^3/uL (4.8-10.8)
[2024-07-07 06:43] LABS: Blood Urea Nitrogen 20 mg/dl (9-20); Calcium 8.7 mg/dl (8.4-10.2); Carbon Dioxide 29 mmol/L (22-30); Chloride 100 mmol/L (98-107); Estimated Creatinine Clearance 62 ml/min; Glucose 244 mg/dl (70-99); Magnesium 1.8 mg/dl (1.6-2.3); Potassium 4.5 mmol/L (3.5-5.1); Sodium 136 mmol/L (135-145); eGFR > 60.00
[2024-07-07 07:28] VITALS: BP 149/86
[2024-07-07 07:41] LABS: Glucose - Point of Care 266 mg/dl (70-99)
[2024-07-07] MEDS: LANTUS 0.25 UNITS SC (09:07)
[2024-07-07] MEDS: ZYVOX 600 MG PO ×2 (09:08→20:31)
[2024-07-07] MEDS: FLOMAX 0.4 MG PO (09:08)
[2024-07-07] MEDS: NORVASC 10 MG PO (09:08)
[2024-07-07] MEDS: SANTYL OINTMENT 1 APPLIC TOPICAL (09:12)
[2024-07-07] MEDS: NOVOLOG FLEXPEN 13 UNITS SC (09:13)
[2024-07-07] MEDS: NOVOLOG FLEXPEN-LOW RESISTANCE 3 UNITS SC (09:13)
[2024-07-07] MEDS: HYDROPHOR 1 APPLIC TOPICAL (09:14)
[2024-07-07] MEDS: DESENEX/MITRAZOL/ZEASORB 1 APPLIC TOPICAL ×2 (09:16→20:31)
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
[2024-07-07 11:46] LABS: Glucose - Point of Care 186 mg/dl (70-99)
[2024-07-07] MEDS: NOVOLOG FLEXPEN 15 UNITS SC ×2 (12:32→17:02)
[2024-07-07] MEDS: NOVOLOG FLEXPEN-LOW RESISTANCE 300 UNITS SC (12:32)
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
[2024-07-07 15:50] VITALS: BP 149/72
--- NOTE | 2024-07-07 16:26 | CM ---
Patient daughter sent completed form to [facility] and CM sent via secure email documentation as requested. Await response.
[2024-07-07 16:36] LABS: Glucose - Point of Care 183 mg/dl (70-99)
[2024-07-07] MEDS: LOVENOX 40 MG SC (17:01)
[2024-07-07] MEDS: NOVOLOG FLEXPEN-LOW RESISTANCE 1 UNITS SC (17:02)
[2024-07-07 21:52] LABS: Glucose - Point of Care 137 mg/dl (70-99)
[2024-07-07 23:20] VITALS: BP 149/75
[2024-07-08 06:00] VITALS: BMI 25.0
[2024-07-08 07:37] LABS: Glucose - Point of Care 242 mg/dl (70-99)
[2024-07-08 07:46] VITALS: BP 157/90
[2024-07-08] MEDS: ZYVOX 600 MG PO (07:52)
[2024-07-08] MEDS: SANTYL OINTMENT 1 APPLIC TOPICAL (07:52)
[2024-07-08] MEDS: NORVASC 10 MG PO (07:52)
[2024-07-08] MEDS: FLOMAX 0.4 MG PO (07:52)
[2024-07-08] MEDS: NOVOLOG FLEXPEN-LOW RESISTANCE 3 UNITS SC (07:52)
[2024-07-08] MEDS: LANTUS 0.28 UNITS SC (07:53)
[2024-07-08] MEDS: NOVOLOG FLEXPEN 15 UNITS SC ×3 (07:53→17:17)
[2024-07-08] MEDS: HYDROPHOR 1 APPLIC TOPICAL (07:55)
[2024-07-08] MEDS: DESENEX/MITRAZOL/ZEASORB 1 APPLIC TOPICAL ×2 (07:56→20:08)
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
--- NOTE | 2024-07-08 10:55 | CM ---
Addendum entered by Hannah Tabares 07/08/24 17:29:
more documentation requested by snf. will need to complete paperwork and email to facility. daughter helpful but unable to come in due to flu.
Addendum entered by Hannah Tabares 07/08/24 16:50:
[phone] for [facility]
Addendum entered by Hannah Tabares 07/08/24 16:49:
CM updated daughter no response from [facility] and she was calling again. CM will need to restart search for SNF.
Original Note:
Patient seen at bedside with physician. Patient is anxious about leaving hospital due to concerns about care. Physician addressed patient questions. CM continues to encourage patient to consider placement at SNF pending acceptance. CM also spoke
with physician and PT about patient concern about needing a second surgical shoe as patient c/o of not being stable with prothesis shoe and surgical shoe on right foot. PT to consider options. await for facility confirmation of bed. CM will continue
to follow for discharge planning needs.
Plan; SNF
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
[2024-07-08 11:32] LABS: Glucose - Point of Care 138 mg/dl (70-99)
[2024-07-08] MEDS: NOVOLOG FLEXPEN-LOW RESISTANCE SC (11:36)
[2024-07-08] MEDS: FEOSOL 325 MG PO (12:30)
[2024-07-08 15:45] VITALS: BP 138/79
[2024-07-08 16:47] LABS: Glucose - Point of Care 174 mg/dl (70-99)
[2024-07-08] MEDS: LOVENOX 40 MG SC (17:16)
[2024-07-08] MEDS: NOVOLOG FLEXPEN-LOW RESISTANCE 1 UNITS SC (17:17)
[2024-07-08] MEDS: VIBRAMYCIN 100 MG PO (20:08)
[2024-07-08 21:20] LABS: Glucose - Point of Care 200 mg/dl (70-99)
[2024-07-08 23:05] VITALS: BP 145/85
[2024-07-09 06:00] VITALS: BMI 25.0
[2024-07-09 07:49] LABS: Glucose - Point of Care 220 mg/dl (70-99)
[2024-07-09 07:58] VITALS: BP 142/81
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
[2024-07-09] MEDS: LANTUS 0.3 UNITS SC (09:47)
[2024-07-09] MEDS: VIBRAMYCIN 100 MG PO ×2 (09:48→19:56)
[2024-07-09] MEDS: FLOMAX 0.4 MG PO (09:48)
[2024-07-09] MEDS: NORVASC 10 MG PO (09:48)
[2024-07-09] MEDS: SANTYL OINTMENT 1 APPLIC TOPICAL (09:54)
[2024-07-09] MEDS: DESENEX/MITRAZOL/ZEASORB 1 APPLIC TOPICAL ×2 (09:55→19:57)
[2024-07-09] MEDS: HYDROPHOR 1 APPLIC TOPICAL (09:55)
[2024-07-09] MEDS: NOVOLOG FLEXPEN 15 UNITS SC ×3 (10:37→16:49)
[2024-07-09] MEDS: LANTUS SC (10:37)
[2024-07-09] MEDS: NOVOLOG FLEXPEN-LOW RESISTANCE 2 UNITS SC (10:38)
[2024-07-09 11:34] LABS: Glucose - Point of Care 182 mg/dl (70-99)
[2024-07-09] MEDS: NOVOLOG FLEXPEN-LOW RESISTANCE 1 UNITS SC (13:06)
[2024-07-09 15:11] VITALS: BP 135/70
[2024-07-09 16:40] LABS: Glucose - Point of Care 140 mg/dl (70-99)
[2024-07-09] MEDS: NOVOLOG FLEXPEN-LOW RESISTANCE SC (16:41)
[2024-07-09] MEDS: LOVENOX 40 MG SC (16:51)
[2024-07-09 21:28] LABS: Glucose - Point of Care 191 mg/dl (70-99)
[2024-07-09 23:18] VITALS: BP 146/74
[2024-07-10 06:00] VITALS: BMI 24.8
[2024-07-10 07:40] VITALS: BP 153/83
[2024-07-10 08:40] LABS: Glucose - Point of Care 278 mg/dl (70-99)
[2024-07-10] MEDS: NOVOLOG FLEXPEN-LOW RESISTANCE 3 UNITS SC ×2 (08:43→16:47)
[2024-07-10] MEDS: NOVOLOG FLEXPEN 15 UNITS SC ×3 (08:44→16:48)
[2024-07-10] MEDS: VIBRAMYCIN 100 MG PO ×2 (09:35→20:05)
[2024-07-10] MEDS: NORVASC 10 MG PO (09:36)
[2024-07-10] MEDS: FLOMAX 0.4 MG PO (09:36)
[2024-07-10] MEDS: DESENEX/MITRAZOL/ZEASORB 1 APPLIC TOPICAL ×2 (09:36→20:05)
[2024-07-10] MEDS: HYDROPHOR 1 APPLIC TOPICAL (09:37)
[2024-07-10] MEDS: SANTYL OINTMENT 1 APPLIC TOPICAL (09:38)
[2024-07-10] MEDS: LANTUS 0.3 UNITS SC (10:47)
[2024-07-10 12:11] LABS: Glucose - Point of Care 174 mg/dl (70-99)
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
[2024-07-10] MEDS: FEOSOL 325 MG PO (13:13)
[2024-07-10] MEDS: NOVOLOG FLEXPEN-LOW RESISTANCE 1 UNITS SC (13:14)
--- NOTE | 2024-07-10 15:51 | CM ---
Met with patient to f/u on paperwork. Patient stated that he did not want to complete the paperwork as he is not familiar with the SNF and he is not ready to transfer yet. Provided explanation to patient that by signing he is not committing himself
to facility but it is the next step in the process. Explanation was provided to patient that when he is stable medically he will need to transfer, however he was still unwilling. Spoke with attending who stated that patient will need to leave when
he is medically stable, which he is currently. Auth will need to be obtained. Will attempt to meet with patient again today to have him sign documentation if time permits.
Plan: Case management will continue to follow and assist with discharge planning. SNF when stable. Patient will have to complete application.
[2024-07-10 16:00] VITALS: BP 150/84
[2024-07-10 16:44] LABS: Glucose - Point of Care 264 mg/dl (70-99)
[2024-07-10] MEDS: LOVENOX 40 MG SC (16:47)
[2024-07-10 22:00] LABS: Glucose - Point of Care 227 mg/dl (70-99)
[2024-07-10 23:55] VITALS: BP 152/87
[2024-07-11 06:00] VITALS: BMI 24.9
[2024-07-11 07:42] VITALS: BP 152/83
[2024-07-11 07:52] LABS: Glucose - Point of Care 235 mg/dl (70-99)
--- NOTE | 2024-07-11 08:05 | CM ---
Patient daughter updated that patient refused to complete requested paperwork and CM no longer able to be sure that he had a bed at that facility. Daughter agreed to update alternative SNF options for discharge when bed available. CM will continue
to follow for discharge planning needs.
Plan; SNF.
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
[2024-07-11] MEDS: LANTUS 0.3 UNITS SC (08:28)
[2024-07-11] MEDS: SANTYL OINTMENT 1 APPLIC TOPICAL (08:28)
[2024-07-11] MEDS: FLOMAX 0.4 MG PO (08:28)
[2024-07-11] MEDS: HYDROPHOR 1 APPLIC TOPICAL (08:29)
[2024-07-11] MEDS: NOVOLOG FLEXPEN-LOW RESISTANCE 2 UNITS SC ×2 (08:29→12:42)
[2024-07-11] MEDS: NORVASC 10 MG PO (08:29)
[2024-07-11] MEDS: DESENEX/MITRAZOL/ZEASORB 1 APPLIC TOPICAL ×2 (08:30→20:02)
[2024-07-11] MEDS: NOVOLOG FLEXPEN 15 UNITS SC ×3 (08:30→17:17)
[2024-07-11 11:41] LABS: Glucose - Point of Care 240 mg/dl (70-99)
--- NOTE | 2024-07-11 15:05 | CM ---
Met with patient to discuss discharge planning. Patient stated that he would be agreeable to any facility that can take him that is nearby. He has been to [facility] in the past and was also agreeable to [facility]. (Referral would need to be
restarted for [facility]) and patient medically stable now, so will need to go where there is availability.
Reinforced to patient how important it is to engage in therapy with PT/OT. Patient stated that is what he has been doing. Spoke with Maude at PT gym who stated that PT/OT will see him so hopeful auth can be obtained.
Placed a call to Jackie in admissions at [facility] who confirmed ability to accept patient. NPIs for hopeful auth- [id number] and Leeanne [phone].
Will start auth as soon as patient engages in therapy.
Plan: Case management will continue to follow and assist with discharge planning. Transfer to [place] upon hopeful auth.
[2024-07-11 15:45] VITALS: BP 124/76
[2024-07-11 16:09] LABS: Glucose - Point of Care 122 mg/dl (70-99)
[2024-07-11] MEDS: NOVOLOG FLEXPEN-LOW RESISTANCE SC (16:15)
[2024-07-11] MEDS: LOVENOX 40 MG SC (17:17)
[2024-07-11 21:51] LABS: Glucose - Point of Care 114 mg/dl (70-99)
[2024-07-11 23:00] VITALS: BP 137/71
[2024-07-12 06:00] VITALS: BMI 24.6
[2024-07-12] MEDS: NOVOLOG FLEXPEN-LOW RESISTANCE SC ×3 (07:03→18:35)
[2024-07-12 07:23] VITALS: BP 147/79
[2024-07-12] MEDS: NOVOLOG FLEXPEN 15 UNITS SC ×3 (07:33→18:35)
[2024-07-12] MEDS: NORVASC 10 MG PO (07:33)
[2024-07-12] MEDS: FLOMAX 0.4 MG PO (07:33)
[2024-07-12] MEDS: HYDROPHOR 1 APPLIC TOPICAL (07:34)
[2024-07-12] MEDS: SANTYL OINTMENT 1 APPLIC TOPICAL (07:34)
[2024-07-12] MEDS: DESENEX/MITRAZOL/ZEASORB 1 APPLIC TOPICAL ×2 (07:34→21:35)
[2024-07-12] MEDS: LANTUS 0.3 UNITS SC (07:36)
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
[2024-07-12 07:40] LABS: Glucose - Point of Care 215 mg/dl (70-99)
[2024-07-12] MEDS: ZESTRIL 10 MG PO (08:01)
[2024-07-12 11:29] LABS: Glucose - Point of Care 95 mg/dl (70-99)
[2024-07-12] MEDS: FEOSOL 325 MG PO (14:33)
[2024-07-12 15:17] VITALS: BP 127/70
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
[2024-07-12 16:51] LABS: Glucose - Point of Care 80 mg/dl (70-99)
[2024-07-12] MEDS: LOVENOX 40 MG SC (18:36)
[2024-07-12 18:39] LABS: Glucose - Point of Care 124 mg/dl (70-99)
[2024-07-12 21:32] LABS: Glucose - Point of Care 70 mg/dl (70-99)
[2024-07-12 23:30] VITALS: BP 138/75
[2024-07-13 06:00] VITALS: BMI 24.9
[2024-07-13 07:25] VITALS: BP 129/76
[2024-07-13 07:39] LABS: Glucose - Point of Care 134 mg/dl (70-99)
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
[2024-07-13 08:25] LABS: Blood Urea Nitrogen 20 mg/dl (9-20); Calcium 8.7 mg/dl (8.4-10.2); Carbon Dioxide 28 mmol/L (22-30); Chloride 103 mmol/L (98-107); Estimated Creatinine Clearance 68 ml/min; Glucose 130 mg/dl (70-99); Potassium 4.7 mmol/L (3.5-5.1); Sodium 138 mmol/L (135-145); eGFR > 60.00
[2024-07-13] MEDS: NOVOLOG FLEXPEN 15 UNITS SC ×2 (09:10→12:40)
[2024-07-13] MEDS: NOVOLOG FLEXPEN-LOW RESISTANCE SC ×3 (09:11→17:21)
[2024-07-13] MEDS: FLOMAX 0.4 MG PO (09:11)
[2024-07-13] MEDS: LANTUS 0.3 UNITS SC (09:12)
[2024-07-13] MEDS: NORVASC 10 MG PO (09:12)
[2024-07-13] MEDS: ZESTRIL 10 MG PO (09:12)
[2024-07-13 11:50] LABS: Glucose - Point of Care 132 mg/dl (70-99)
[2024-07-13] MEDS: HYDROPHOR 1 APPLIC TOPICAL (12:39)
[2024-07-13] MEDS: DESENEX/MITRAZOL/ZEASORB 1 APPLIC TOPICAL ×2 (12:39→19:53)
[2024-07-13] MEDS: SANTYL OINTMENT 1 APPLIC TOPICAL (12:40)
[2024-07-13 15:26] VITALS: BP 120/70
[2024-07-13 16:33] LABS: Glucose - Point of Care 64 mg/dl (70-99)
[2024-07-13 16:53] LABS: Glucose - Point of Care 69 mg/dl (70-99)
[2024-07-13] MEDS: NOVOLOG FLEXPEN SC (17:21)
[2024-07-13 17:31] LABS: Glucose - Point of Care 100 mg/dl (70-99)
[2024-07-13] MEDS: LOVENOX 40 MG SC (17:39)
[2024-07-13 21:32] LABS: Glucose - Point of Care 180 mg/dl (70-99)
[2024-07-13 23:03] VITALS: BP 144/77
[2024-07-14 03:12] LABS: Glucose - Point of Care 153 mg/dl (70-99)
[2024-07-14 06:00] VITALS: BMI 24.9
[2024-07-14 07:30] VITALS: BP 122/79
[2024-07-14 07:58] LABS: Glucose - Point of Care 196 mg/dl (70-99)
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
[2024-07-14] MEDS: NORVASC 10 MG PO (09:23)
[2024-07-14] MEDS: DESENEX/MITRAZOL/ZEASORB 1 APPLIC TOPICAL ×2 (09:23→20:38)
[2024-07-14] MEDS: HYDROPHOR 1 APPLIC TOPICAL (09:23)
[2024-07-14] MEDS: FLOMAX 0.4 MG PO (09:23)
[2024-07-14] MEDS: ZESTRIL 10 MG PO (09:24)
[2024-07-14] MEDS: NOVOLOG FLEXPEN-LOW RESISTANCE 1 UNITS SC ×2 (09:30→13:15)
[2024-07-14] MEDS: LANTUS 0.3 UNITS SC (09:30)
[2024-07-14] MEDS: NOVOLOG FLEXPEN 15 UNITS SC ×2 (09:30→13:15)
[2024-07-14] MEDS: SANTYL OINTMENT 1 APPLIC TOPICAL (10:30)
--- NOTE | 2024-07-14 11:05 | WOUNDNOTE ---
LEFT STUMP- HEALED WOUND
--- NOTE | 2024-07-14 11:05 | WOUNDNOTE ---
[facility] RN NOTE: Patient visited to follow up on wounds of right great toe, right lower leg, left medial ankle and left stump. Patient also followed by podiatry. Right leg wound now fully epithelized. Hydrophor and dry dressing applied to protect newly
healed skin. Some adherent eschar remains on right medial ankle and Santyl applied and as ordered. Right toes 2, 3, 4 with adherent eschar, no drainage. Right great toe progresses toward healing and local wound care provided with Santyl as ordered.
Right LE wrapped in JEANETTE as ordered. Right heel intact. Patient prefers to off-load right heel with air cushion under calf rather than fiber filled boot. Left stump wound now fully epithelized and Hydrophor applied as ordered. Patient demonstrates
good ability to turn in bed with minimal assistance. Sacrum intact. Patient reports good appetite and reports weight gain since admission. Plan is for SNF. TT Dr. Guaman and confirmed update to wound orders. Discharge and care plan updated. Will follow
as needed.
--- NOTE | 2024-07-14 11:51 | WOUNDNOTE ---
RIGHT ANTERIOR LEG
--- NOTE | 2024-07-14 11:51 | WOUNDNOTE ---
RIGHT LATERAL ANKLE
--- NOTE | 2024-07-14 11:52 | WOUNDNOTE ---
RIGHT MEDIAL ANKLE
--- NOTE | 2024-07-14 11:53 | WOUNDNOTE ---
RIGHT ANTERIOR LEG
--- NOTE | 2024-07-14 11:53 | WOUNDNOTE ---
RIGHT GREAT TOE
--- NOTE | 2024-07-14 11:53 | WOUNDNOTE ---
RIGHT GREAT TOE
[2024-07-14 12:39] LABS: Glucose - Point of Care 152 mg/dl (70-99)
[2024-07-14] MEDS: FEOSOL 325 MG PO (14:42)
[2024-07-14 15:50] VITALS: BP 114/72
--- NOTE | 2024-07-14 16:08 | PTCARENOTE ---
patient denies pain, refused compression therapy as ordered to RLE, refused to work with PT, tolerating diet, vss, will continue to monitor.
--- NOTE | 2024-07-14 17:04 | CM ---
Spoke with attending who stated that daughter would not be accepting of transfer to [facility]. She stated that [facility] would be a preference. Spoke with Katie in admissions at [facility] who reviewed referral and stated that she can
accept.
Patient will need auth
NPI-[id number]
MD Svetlana Bae [id number]
Will initiate authorization.
Plan: Case management will continue to follow and assist with discharge planning.
[2024-07-14 17:30] LABS: Glucose - Point of Care 130 mg/dl (70-99)
[2024-07-14] MEDS: NOVOLOG FLEXPEN-LOW RESISTANCE SC (17:36)
[2024-07-14] MEDS: LOVENOX 40 MG SC (17:37)
[2024-07-14] MEDS: NOVOLOG FLEXPEN 12 UNITS SC (17:37)
[2024-07-14 21:50] LABS: Glucose - Point of Care 88 mg/dl (70-99)
[2024-07-14 23:00] VITALS: BP 128/69
[2024-07-15 06:00] VITALS: BMI 24.8
[2024-07-15 07:23] VITALS: BP 140/88
[2024-07-15 07:26] LABS: Blood Urea Nitrogen 26 mg/dl (9-20); Calcium 9.2 mg/dl (8.4-10.2); Carbon Dioxide 31 mmol/L (22-30); Chloride 102 mmol/L (98-107); Estimated Creatinine Clearance 62 ml/min; Glucose 211 mg/dl (70-99); Potassium 4.9 mmol/L (3.5-5.1); Sodium 138 mmol/L (135-145); eGFR > 60.00
[2024-07-15 07:51] LABS: Glucose - Point of Care 213 mg/dl (70-99)
[2024-07-15] MEDS: NOVOLOG FLEXPEN-LOW RESISTANCE 2 UNITS SC ×2 (08:55→13:03)
[2024-07-15] MEDS: LANTUS 0.3 UNITS SC (08:55)
[2024-07-15] MEDS: ZESTRIL 10 MG PO (08:56)
[2024-07-15] MEDS: NORVASC 10 MG PO (08:56)
[2024-07-15] MEDS: NOVOLOG FLEXPEN 12 UNITS SC ×3 (08:56→16:37)
[2024-07-15] MEDS: FLOMAX 0.4 MG PO (08:56)
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
[2024-07-15] MEDS: SANTYL OINTMENT 1 APPLIC TOPICAL (08:57)
[2024-07-15] MEDS: HYDROPHOR 1 APPLIC TOPICAL (08:57)
[2024-07-15] MEDS: DESENEX/MITRAZOL/ZEASORB 1 APPLIC TOPICAL ×2 (08:57→19:56)
[2024-07-15 12:45] LABS: Glucose - Point of Care 220 mg/dl (70-99)
[2024-07-15 15:21] VITALS: BP 127/76
[2024-07-15] MEDS: LOVENOX 40 MG SC (16:36)
[2024-07-15 16:37] LABS: Glucose - Point of Care 140 mg/dl (70-99)
[2024-07-15] MEDS: NOVOLOG FLEXPEN-LOW RESISTANCE SC (16:37)
[2024-07-15 21:27] LABS: Glucose - Point of Care 90 mg/dl (70-99)
[2024-07-15 23:29] VITALS: BP 126/70
[2024-07-16 06:00] VITALS: BMI 25.3
[2024-07-16 07:00] VITALS: BP 136/81
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
[2024-07-16 08:22] LABS: Glucose - Point of Care 257 mg/dl (70-99)
[2024-07-16] MEDS: ZESTRIL 10 MG PO (08:25)
[2024-07-16] MEDS: FLOMAX 0.4 MG PO (08:25)
[2024-07-16] MEDS: LANTUS 0.3 UNITS SC (08:26)
[2024-07-16] MEDS: NORVASC 10 MG PO (08:26)
[2024-07-16] MEDS: NOVOLOG FLEXPEN-LOW RESISTANCE 3 UNITS SC (08:27)
[2024-07-16] MEDS: NOVOLOG FLEXPEN 12 UNITS SC ×3 (08:27→17:45)
[2024-07-16] MEDS: SANTYL OINTMENT 1 APPLIC TOPICAL (08:28)
[2024-07-16] MEDS: DESENEX/MITRAZOL/ZEASORB 1 APPLIC TOPICAL ×2 (08:30→22:51)
[2024-07-16] MEDS: HYDROPHOR 1 APPLIC TOPICAL (08:30)
--- NOTE | 2024-07-16 10:08 | CM ---
LM with [facility] for bed availability.
Notified Pt that he needs to participate in PT OT today to be able to get an auth for SNF.
[facility] NPI as follows:
NPI-[id number]
MD Svetlana Bae [id number]
PT OT notified that pt needs PT OT for auth /SNF.
PLAN To [facility] after auth obtained
--- NOTE | 2024-07-16 10:22 | CM ---
Addendum entered by Kourtney Howard RN 07/16/24 10:37:
LM with Adelita beckham of dc plan.
Original Note:
Pt needs auth .
Finally reached Katie [phone] wkend admission at [facility] she said their is a bed after auth.
Dr Svetlana Bae [phone]
Pt refused PT OT yesterday. Informed PT OT and pt he needs evals today.
[facility]
report [phone]
fax [phone]
PLAN To [facility] after auth obtained
[2024-07-16 11:32] LABS: Glucose - Point of Care 141 mg/dl (70-99)
[2024-07-16] MEDS: NOVOLOG FLEXPEN-LOW RESISTANCE SC ×2 (11:34→16:50)
[2024-07-16] MEDS: FEOSOL 325 MG PO (13:10)
[2024-07-16 15:00] VITALS: BP 122/68
[2024-07-16 15:22] LABS: Blood Urea Nitrogen 26 mg/dl (9-20); Calcium 8.8 mg/dl (8.4-10.2); Carbon Dioxide 29 mmol/L (22-30); Chloride 106 mmol/L (98-107); Estimated Creatinine Clearance 57 ml/min; Glucose 82 mg/dl (70-99); Potassium 4.5 mmol/L (3.5-5.1); Sodium 139 mmol/L (135-145); eGFR > 60.00
[2024-07-16 16:48] LABS: Glucose - Point of Care 138 mg/dl (70-99)
[2024-07-16] MEDS: LOVENOX 40 MG SC (17:46)
[2024-07-16 21:40] LABS: Glucose - Point of Care 162 mg/dl (70-99)
[2024-07-16 23:46] VITALS: BP 137/76
[2024-07-17 06:00] VITALS: BMI 25.1
[2024-07-17 07:00] VITALS: BP 133/78
[2024-07-17 07:53] LABS: Glucose - Point of Care 176 mg/dl (70-99)
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
[2024-07-17] MEDS: NOVOLOG FLEXPEN-LOW RESISTANCE 1 UNITS SC ×2 (09:04→11:48)
[2024-07-17] MEDS: LANTUS 0.3 UNITS SC (09:04)
[2024-07-17] MEDS: NOVOLOG FLEXPEN 12 UNITS SC ×3 (09:05→16:56)
[2024-07-17] MEDS: SANTYL OINTMENT 1 APPLIC TOPICAL (09:06)
[2024-07-17] MEDS: NORVASC 10 MG PO (09:06)
[2024-07-17] MEDS: ZESTRIL 10 MG PO (09:06)
[2024-07-17] MEDS: HYDROPHOR 1 APPLIC TOPICAL (09:07)
[2024-07-17] MEDS: DESENEX/MITRAZOL/ZEASORB 1 APPLIC TOPICAL ×2 (09:07→21:44)
[2024-07-17] MEDS: FLOMAX 0.4 MG PO (09:11)
--- NOTE | 2024-07-17 09:44 | CM ---
Pt needs auth .
Katie [phone] wkend admission at [facility] she said their is a bed after auth.
spoke with Samara [phone] started auth .Clinical fax to [phone] Ref ID # [id number]
Dr Svetlana Bae [phone]
PT OT yesterday. Informed PT OT and pt he needs evals today.
[facility]
report [phone]
fax [phone]
PLAN To [facility] after auth obtained
[2024-07-17 11:19] LABS: Glucose - Point of Care 184 mg/dl (70-99)
[2024-07-17 15:00] VITALS: BP 133/78
[2024-07-17 16:23] LABS: Glucose - Point of Care 142 mg/dl (70-99)
[2024-07-17] MEDS: LOVENOX 40 MG SC (16:55)
[2024-07-17] MEDS: NOVOLOG FLEXPEN-LOW RESISTANCE SC (16:55)
[2024-07-17 22:05] LABS: Glucose - Point of Care 121 mg/dl (70-99)
[2024-07-17 23:19] VITALS: BP 134/80
[2024-07-18 05:57] VITALS: BMI 25.0
[2024-07-18 07:05] VITALS: BP 151/86
[2024-07-18 07:46] LABS: Glucose - Point of Care 160 mg/dl (70-99)
[2024-07-18] MEDS: NOVOLOG FLEXPEN-LOW RESISTANCE 1 UNITS SC (08:39)
[2024-07-18] MEDS: NOVOLOG FLEXPEN 12 UNITS SC (08:39)
[2024-07-18] MEDS: FLOMAX 0.4 MG PO (08:40)
[2024-07-18] MEDS: ZESTRIL 10 MG PO (08:40)
[2024-07-18] MEDS: NORVASC 10 MG PO (08:40)
[2024-07-18] MEDS: DESENEX/MITRAZOL/ZEASORB 1 APPLIC TOPICAL (08:40)
[2024-07-18] MEDS: HYDROPHOR 1 APPLIC TOPICAL (08:41)
[2024-07-18] MEDS: SANTYL OINTMENT 1 APPLIC TOPICAL (08:43)
[2024-07-18] MEDS: LANTUS 0.3 UNITS SC (08:47)
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
--- NOTE | 2024-07-18 11:22 | CM ---
Addendum entered by Salma Díaz 07/18/24 11:33:
Transport 1300
Phone- [phone] Fax- [phone]
Original Note:
CM reviewed pt with [facility]- ready for dc
Bed confirmed at [facility] admissions
Auth approval from [facility]
Discussion with Acute Care/Romain- pt does not qualify for BLS
Cost of WC van $115
Bedside discussion with pt
He is in agreement with plan
Notes no payment method on person and limited financial resources
In agreement with payment plan if available
IMM verbally completed and copy provided
Discussion with Acute Care billing/Isamar
In agreement with billing pt and setting up payment plan
CM offered call to dtr to provided update
Per pt, he does NOT want CM to contact dtr to review dispo plans any further due to family issues
He requested no further communication with her
He did give approval that update can only be provided if dtr only if she calls in
[facility] auth SNF# [id number] 3days
07/18-07/20 NRD
Lianne Tejeda (p) [phone] (f) [phone]
Discharge Disposition- [facility] SNF via [employer] van
[2024-07-18 12:17] LABS: Glucose - Point of Care 66 mg/dl (70-99)
[2024-07-18] MEDS: NOVOLOG FLEXPEN SC (12:22)
[2024-07-18] MEDS: NOVOLOG FLEXPEN-LOW RESISTANCE SC (12:22)
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
[2024-07-18 13:02] VITALS: BP 150/86
--- NOTE | 2024-07-18 14:22 | PTCARENOTE ---
report called to [facility]
== END 2024-07-18 13:19 | DRG 603 ==
LOC: 3 WEST ACU 04:31
PROVIDERS: Emergency Medicine; Family Medicine; ADMITTING PHYSICIAN Hospitalist; ATTENDING PHYSICIAN Internal Medicine; CONSULT PHYSICIAN Internal Medicine Infectious Disease; CONSULT PHYSICIAN Specialist; EMERGENCY PHYSICIAN Emergency Medicine; OTHER PHYSICIAN Surgery Vascular Surgery
DX: L03.031 Cellulitis of right toe (principal); N17.9 Acute kidney failure, unspecified; B37.49 Other urogenital candidiasis; E11.52 Type 2 diabetes mellitus with diabetic peripheral angiopathy with gangrene; E87.5 Hyperkalemia; E11.65 Type 2 diabetes mellitus with hyperglycemia; I10 Essential (primary) hypertension; D50.9 Iron deficiency anemia, unspecified; Z91.148 Patient's other noncompliance with medication regimen for other reason; E11.40 Type 2 diabetes mellitus with diabetic neuropathy, unspecified; L29.9 Pruritus, unspecified; Z22.322 Carrier or suspected carrier of Methicillin resistant Staphylococcus aureus; Z60.8 Other problems related to social environment; Z79.4 Long term (current) use of insulin; Z89.512 Acquired absence of left leg below knee; L89.892 Pressure ulcer of other site, stage 2
CPT/HCPCS: 51702; 51798; 80048; 80053; 81003; 81015; 82607; 82728; 82746; 82962; 83036; 83540; 83550; 83605; 83735; 84100; 84443; 85025; 85027; 87045; 87046; 87070; 87086; 87147; 87324; 87427; 87449; 87798; 89055; 93005; 93922; 93925; 96365; 96375; 97116; 97163; 97167; 97530; 97535; 99285

== ENCOUNTER 2024-09-02 19:48 | Inpatient (IN) | payer MEDICARE, SELFPAY ==
[2024-09-02 16:25] VITALS: BP 148/89
[2024-09-02 16:26] VITALS: BP 148/89
[2024-09-02 17:01] VITALS: BMI 25.2
[2024-09-02 17:05] LABS: Hematocrit 32.6 % (39.0-52.0); Hemoglobin 11.5 g/dL (13.0-18.0); Mean Corp Hgb Conc. 35.3 g/dL (33.0-37.0); Mean Corpuscular Hgb 29.2 pg (27.0-31.0); Mean Corpuscular Volume 82.7 fL (80.0-94.0); Mean Platelet Volume 9.9 fL (7.4-10.4); Platelet Count 274 10^3/uL (130-400); Red Blood Cell Count 3.94 10^6/uL (4.70-6.10); Red Cell Dist. Width 14.6 % (11.5-14.5)
[2024-09-02 17:11] LABS: ALT (SGPT) 15 U/L (0-50); AST (SGOT) 20 U/L (17-59); Albumin 3.4 g/dl (3.5-5.0); Alkaline Phosphatase 106 U/L (38-126); Blood Urea Nitrogen 20 mg/dl (9-20); Carbon Dioxide 28 mmol/L (22-30); Chloride 104 mmol/L (98-107); Estimated Creatinine Clearance 63 ml/min; Glucose 190 mg/dl (70-99); Potassium 4.3 mmol/L (3.5-5.1); Sodium 140 mmol/L (135-145); Total Bilirubin 1.1 mg/dl (0.2-1.3); Total Protein 6.5 g/dl (6.3-8.2); eGFR > 60.00
[2024-09-02 17:21] LABS: Urine Albumin 4+ (Neg - Trace); Urine Bilirubin Negative (Negative); Urine Character Cloudy (Clear); Urine Color Yellow; Urine Glucose 2+ (Negative); Urine Ketone Negative (Negative); Urine Leukocyte 3+ (Negative); Urine Nitrite Negative (Negative); Urine Occult Blood 4+ (Negative); Urine Specific Gravity 1.015 (<1.030); Urine Urobilinogen Negative (Neg - 1+)
[2024-09-02 17:31] LABS: COVID-19 Antigen Negative (Negative)
[2024-09-02 17:38] LABS: % Basophils 0.3 % (0-2); % Eosinophils 0.4 % (0-6); % Immature Granulocytes 0.4 % (0-0.5); % Lymphocytes 10.1 % (20.5-51.1); % Monocytes 8.3 % (1.7-9.3); % Neutrophils 80.5 % (42.2-75.2); Absolute Eosinophils 0.1 10^3/uL (0-0.7); Absolute Immature Granulocytes 0.1 10^3/uL (0-0.05); Absolute Lymphocytes 1.4 10^3/uL (1.2-3.4); Absolute Monocytes 1.2 10^3/uL (0.1-0.6); Absolute Neutrophils 11.3 10^3/uL (1.4-6.5); Nucleated Red Blood Cells % 0 % (-)
[2024-09-02 17:40] LABS: Urine Bacteria Many (Negative); Urine Red Blood Cell 16-20 /HPF (0-2); Urine Squamous Cell 0-2 /LPF (Few); Urine White Cell >100 /HPF (0-5)
[2024-09-02 17:41] LABS: Urine Amorphous Seen
[2024-09-02] MEDS: TYLENOL 650 MG PO ×2 (17:55→23:05)
--- NOTE | 2024-09-02 18:32 | ED.GENMED ---
History of Present Illness
General
Chief Complaint: Weakness
Source: patient and family (Patient son-in-law at bedside)
Exam Limitations: none
Time Seen by Provider: 09/02/24 17:28
Nursing documentation reviewed up to this point in time: agreed with
History of Present Illness
History of Present Illness:
Patient is a 74-year-old male with history diabetes, urinary incontinence with chronic indwelling Dominique catheter presenting to the emergency department with fever and abdominal pain. Patient's son-in-law at bedside assisting with history and states
that his [id number] started with fevers, abdominal pain, and significant weakness yesterday. He has not had anything to eat or drink and feels that he may be dehydrated. Patient apparently has had an indwelling Dominique catheter that has not been
changed in over 1 month. A visiting nurse to come out and change Dominique catheter for the first time yesterday. Patient lives alone.
Patient denies any headache, chest pain, shortness of breath, or cough. No diarrhea. He does report generalized abdominal pain although seems slightly improved at this time.
Past History
Past History
ED Past Medical History: IDDM
ED Past Surgical History: Orthopedic (Left BKA)
Social History
Tobacco: Non-smoker
Alcohol: None
Drug: None
Living: alone
Employment: Retired
Review of Systems
Review of Systems
Allergies reviewed?: Yes
All Other Systems: ROS reviewed and negative except as documented in HPI and ROS
Phy Exam
Physical Exam
Physical Exam:
Vitals: Tachycardic, febrile, normotensive
General: Patient is weak appearing.
Skin: Warm and dry, no rashes or lesions
Head: Normocephalic, atraumatic
Eyes: Sclera nonicteric. EOMs intact. No nystagmus.
Throat: Protecting airway
Neck: Normal ROM, no cervical spine tenderness, no meningismus
Cardiac: Regular rate and rhythm, no murmurs.
Pulm: Normal respiratory effort, no wheezes, rales, rhonchi heard on exam.
Abdomen: Abdomen soft. Mild diffuse abdominal tenderness without focal tenderness. No rebound tenderness or guarding.
Extremities: No evidence of cyanosis or edema. Palpable DP pulses
Neuro: AAOx3. Grossly intact.
Psychiatric: Normal affect.
Sepsis
Sepsis Screening
Sepsis Assessment: Sepsis
Sepsis Screen
Sepsis Screen: Sepsis
Date: 09/02/24
Time: 20:27
Course
Orders/Labs/Results
Orders:
Orders
09/02/24 16:31
Electrocardiogram (*1) Urgent
Reason for Study: Other
Other Reason for Exam: Possible Sepsis
Cardiac Monitoring- Treatment ONCE
IV Insert/Care/Rem.- Treatment PRN
O2 Therapy [RESP] Urgent
Titrate/Wean O2 to maintain O2 sat greater than (%): 93
Special Instructions: TO MAINTAIN CONTINUOUS O2 SATS > OR = 93%
Pulse Ox/cont/shift [RESP] Urgent
Quantity: 1
Special Instructions: CONTINUOUS
09/02/24 16:32
EKG- Treatment ONCE
09/02/24 16:51
Complete Blood Count/With Diff Urgent
Comprehensive Metabolic Panel Urgent
Lactic Acid Q4H
Comment: ON ICE, CANCEL 2ND ORDER IF FIRST LACTIC ACID LEVEL <2
Urinalysis Reflex To Culture Urgent
Date Specimen was Collected: 09/02/24
Time Specimen was Collected: 16:32
Urine Microscopic Reflex Cult Urgent
Blood Culture Q20M
KAYLEE Source: Blood/Venous
Specimen Description:
Comment: Urgent from separate sites. If patient screens positive for possible sepsis
Urine Culture Urgent
KAYLEE Source: U
Specimen Description:
Date Specimen was Collected: 09/02/24
Time Specimen was Collected: 16:32
09/02/24 17:04
COVID-19 Antigen Urgent
Source: Nasal Swab
Influenza A+B Rapid Molecular Urgent
KAYLEE Source: Nasal Swab
Specimen Description:
09/02/24 17:40
CT Abd/pelvis W Iv Cont Urgent
Comment:
Reason For Exam: Diffuse abdominal pain
Acetaminophen [Tylenol] 650 mg PO NOW STA
09/02/24 18:35
0.9% Sodium Chloride 1000 ml [Nss] 1,000 ml IV BOLUS
Cefepime HCl [Maxipime] 2,000 mg IV NOW STA
09/02/24 18:45
Piperacillin/Tazo 3.375 Gram [Zosyn] 3.375 gram in 50 ml IV NOW
09/02/24 18:48
Blood Culture Q20M
KAYLEE Source: Blood/Venous
Specimen Description:
Comment: Urgent from separate sites. If patient screens positive for possible sepsis
09/02/24 19:35
Admit/Transfer Patient As Directed
Co-Sign Provider:
Level of Care: Inpatient admission
Assign to:: Medical/Surgical
Physician / Group: Mikael
Diagnosis: CAUTI / Sepsis
Reason for Hospitalization: CAUTI / Sepsis
Expected length of stay greater than two midnights?: Yes
ELOS- Estimated Length of Stay in days: 3
I certify the patient meets the requirements for IP care: Yes
09/02/24 19:37
Code Status As Directed
Resuscitation Status: Full Code
Abnormal Lab Results
09/02/24
16:51
WBC 14.0 H 10^3/uL
(4.8-10.8)
RBC 3.94 L 10^6/uL
(4.70-6.10)
Hgb 11.5 L g/dL
(13.0-18.0)
Hct 32.6 L %
(39.0-52.0)
RDW 14.6 H %
(11.5-14.5)
Abs Immat Gran (auto) 0.1 H 10^3/uL
(0-0.05)
Absolute Neuts (auto) 11.3 H 10^3/uL
(1.4-6.5)
Absolute Monos (auto) 1.2 H 10^3/uL
(0.1-0.6)
Neutrophils % 80.5 H %
(42.2-75.2)
Lymphocytes % 10.1 L %
(20.5-51.1)
Glucose 190 H mg/dl
(70-99)
Albumin 3.4 L g/dl
(3.5-5.0)
Ur Occult Blood Reflex 4+ A
(Negative)
Leukocyte Esterase Rfl 3+ A
(Negative)
Urine RBC 16-20 A /HPF
(0-2)
Urine WBC (Reflex) >100 A /HPF
(0-5)
Urine Bacteria (Reflex) Many A
(Negative)
Urine Glucose 2+ A
(Negative)
Urine Albumin (Reflex) 4+ A
(Neg - Trace)
09/02/24 16:51
09/02/24 16:51
Vital Signs
Initial and Last Documented VS:
Initial Vital Signs
Pulse Resp Pulse Ox
105 14 96
09/02/24 16:24 09/02/24 16:24 09/02/24 16:24
Last Documented Vital Signs
Temp Pulse Resp BP Pulse Ox
99.3 F 107 17 138/81 97
09/02/24 19:48 09/02/24 19:47 09/02/24 19:47 09/02/24 19:47 09/02/24 19:47
MDM/Problems Addressed
Differential Diagnosis Includes:
Not limited to: Sepsis, cystitis, pyelonephritis, ureterolithiasis, appendicitis, diverticulitis, etc.
MDM/Problems Addressed:
74-year-old male presenting with 2 days of fevers, weakness, and abdominal pain. No chest pain, shortness of breath, cough, urinary symptoms. He does have chronic indwelling Dominique catheter which was changed for the first time in 1 month yesterday.
Patient hypertensive, tachycardic on arrival. He has a temp of 100.6 F. Physical exam as above. Patient generally weak appearing. Abdomen soft with very mild diffuse tenderness. No focal tenderness. Cardio/pulmonary assessment unremarkable.
On arrival to [facility] catheter was exchanged and apparently bag had 2000 mL of malodorous cloudy urine. Basic labs were sent prior to my evaluation which significant for leukocytosis of 14. Chemistry unremarkable. Urine does appear infected.
Viral swabs are pending. Patient meets sepsis criteria. Blood cultures were sent. Patient maintaining blood pressure with no lactic acidosis -fluid bolus 30ml/kg not indicated. overall impression is likely sepsis secondary to UTI. Although
given mild abdominal tenderness�will obtain CT imaging. IV fluids were initiated upon arrival. Patient will require admission for further evaluation
Update: CT abdomen/pelvis shows mild diverticulitis versus colitis. Considered initiating IV cefepime for suspected urinary source although given possible diverticulitis�will start IV Zosyn. Patient remains hemodynamically stable. Patient accepted
to hospitalist service for further evaluation/management.
Chronic conditions affecting care:
Urinary incontinence with chronic indwelling Dominique catheter
Acute Exacerbation and/or Progression of Chronic Illness:
Sepsis secondary to UTI
*Radiology
Radiology exam reviewed: radiology read reviewed (CT abdomen/pelvis-mild diverticulitis versus colitis)
*Pulse Oximetry
Patient hypoxic: no
*EKG
Interpreted by ED Provider?: Yes
EKG Intrepretation Date: 09/02/24
Interpretation: abnormal
Comparison EKG: no comparison EKG present
Heart Rate: 99
Rate: normal
Rhythm: sinus and PAC's
Irving: left axis deviation
QRS Pattern: normal QRS
Ischemia: non-specific ST changes
*Practice Clinician Interpretation
Rate: tachycardiac
Interpretation: abnormal
Heart Rate: 106
Rhythm: sinus
*Critical Care Note
Total Time (30-74mins, 75-104mins- exclusive of procedures): Not Applicable
Patient Management
Discussion with other providers: Hospitalist
Escalation/DeEscalation of care consider admission/obs:
Admit indicated
ED Attending Note
-
Portions of this chart may have been created with voice recognition software.� Occasional wrong word or��sound alike� substitutions may have occurred due to the inherent limitations of voice recognition software.
Discharge Plan
Departure
Patient Disposition: Admit
Date of Disposition: 09/02/24
Time of Disposition: 18:45
Presentation/result/management discussed w/ accepting MD/DO: Hospitalist
Discharge Problem:
Sepsis, Acute UTI, Diverticulitis
Interventions
Interventions:
*Risk Screen - Suicide Last Done: 09/02/24 16:55
*General Assessment Last Done: 09/02/24 16:55
*Neglect/Abuse Screening Last Done: 09/02/24 16:55
*ED- Fall Risk Assessment Last Done: 09/02/24 16:55
*ED COVID-19 Vaccine History Last Done: 09/02/24 16:55
ED- Cardiac Assessment Last Done: 09/02/24 16:55
ED- Neurological Assessment Last Done: 09/02/24 16:55
ED- Pulmonary Assessment Last Done: 09/02/24 16:55
[2024-09-02] MEDS: NSS 1000 IV (18:55)
[2024-09-02] MEDS: ZOSYN 50 IV ×2 (18:58→23:05)
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
[2024-09-02 19:47] VITALS: BP 138/81
[2024-09-02 21:44] VITALS: BP 163/87
[2024-09-02 22:52] LABS: Glucose - Point of Care 179 mg/dl (70-99)
[2024-09-02] MEDS: LANTUS 0.24 UNITS SC (22:56)
[2024-09-02] MEDS: LR 1000 IV (22:56)
[2024-09-02] MEDS: HEPARIN 5000 UNITS SC (23:04)
[2024-09-02] MEDS: SENOKOT 17.2 MG PO (23:05)
[2024-09-02] MEDS: COLACE 100 MG PO (23:05)
[2024-09-02 23:17] VITALS: BMI 24.4
[2024-09-02 23:19] VITALS: BP 158/82
[2024-09-03] MEDS: TYLENOL 650 MG PO ×5 (05:00→21:50)
[2024-09-03] MEDS: ZOSYN 50 IV ×3 (05:09→17:18)
[2024-09-03 06:42] LABS: Hemoglobin 9.8 g/dL (13.0-18.0); Mean Corpuscular Hgb 28.8 pg (27.0-31.0); Mean Corpuscular Volume 82.4 fL (80.0-94.0); Mean Platelet Volume 10.4 fL (7.4-10.4); Platelet Count 228 10^3/uL (130-400); Red Cell Dist. Width 14.3 % (11.5-14.5); White Blood Cell Count 14.4 10^3/uL (4.8-10.8)
[2024-09-03 07:09] LABS: Blood Urea Nitrogen 17 mg/dl (9-20); Calcium 8.4 mg/dl (8.4-10.2); Carbon Dioxide 26 mmol/L (22-30); Chloride 102 mmol/L (98-107); Estimated Creatinine Clearance 57 ml/min; Glucose 134 mg/dl (70-99); Potassium 3.9 mmol/L (3.5-5.1); Sodium 136 mmol/L (135-145); eGFR > 60.00
[2024-09-03 07:42] LABS: Glucose - Point of Care 120 mg/dl (70-99)
[2024-09-03] MEDS: NOVOLOG FLEXPEN-MODERATE RESISTANCE SC ×3 (07:49→17:03)
[2024-09-03 07:56] VITALS: BP 114/72
[2024-09-03] MEDS: FEOSOL 325 MG PO (08:59)
[2024-09-03] MEDS: HEPARIN 5000 UNITS SC ×2 (08:59→20:38)
[2024-09-03] MEDS: FLOMAX 0.8 MG PO (08:59)
[2024-09-03] MEDS: NORVASC 10 MG PO (08:59)
[2024-09-03] MEDS: COLACE 100 MG PO (08:59)
[2024-09-03 09:00] LABS: Glycohemoglobin (HgbA1c) 9.8 % (4.0-5.6)
[2024-09-03] MEDS: ZESTRIL 10 MG PO (09:00)
[2024-09-03] MEDS: ZOLOFT 25 MG PO (09:00)
[2024-09-03] MEDS: NOVOLOG FLEXPEN 10 UNITS SC (09:00)
--- NOTE | 2024-09-03 09:40 | W.PN.HOSP.TC ---
Today's Communication/Plan
-
Follow urine culture data. Continue with Dominique catheter. Continue with antibiotics.
Assessment / Plan
Assessment / Plan
A/P: Patient is an 74y M with PMH significant for HTN, DM-II and urinary retention who presents to ED complaining of fevers, malaise and abdominal pain for the past 24 hours.
CAUTI
Sepsis secondary to the above
Chronic Urinary Retention
BPH
- Patient presents with fever, tachycardia, leukocytosis and UA suggestive of infection.
- Suspect new infection during Dominique removal / subsequent replacement over the past 2 days.
- Continue IV abx with Zosyn for now pending culture data.
- Hold further IVF support.
- Follow for clinical improvement.
- Maintain Dominique catheter for now. Continue tamsulosin.
- Patient will need outpatient follow-up with Urology for next steps given failed TOV after 1 month of Dominique decompression.
Questionable Descending Colon Diverticulitis
- Patient has no LLQ abdominal pain or other such complaints at present.
- Timing of symptoms seems to suggest catheter manipulation as likely source > GI.
- IV Zosyn as noted above.
- Follow for any new / worsening symptoms.
- Will need eventual colonoscopy (previously recommended re: iron deficiency). Patient never had a colonoscopy. Advised about the importance of getting a colonoscopy as outpatient.
Benign Hypertension
- Stable. Continue home meds with holding parameters.
DM-II
- Stable. Continue basal : bolus insulin regimen.
- Follow glucose and cover with SSI as needed.
- Update A1C.
Chronic Iron Deficiency Anemia
- Stable / improved. Hgb up from prior values.
- Continue iron supplementation.
- Eventual GI eval / endoscopic exam as noted above.
R Ankle Wound
L Stump Wound
- Wound Care eval for local care recommendations.
DVT Prophylaxis: Subcut Heparin
Code Status: Full
Anticipated Discharge: > 48 hours
Subjective/Interval History
-
Date of Service: September 03, 2024
Was feeling nauseous yesterday but not today. No abdominal pain.
Feels okay. No fevers today.
Denies shortness of breath or chest pain.
Denies any abdominal pain. Lately has been constipated. Never had a colonoscopy.
Objective Data
-
Labs:
Laboratory Results
09/03/24
06:10
WBC 14.4 H
Hgb 9.8 L
Hct 28.0 L
Plt Count 228
Sodium 136
Potassium 3.9
Chloride 102
Carbon Dioxide 26
BUN 17
Creatinine 1.2
Glucose 134 H
Calcium 8.4
Vital Signs:
Vital Signs
Temp Pulse Resp BP Pulse Ox
98.8 F 92 16 114/72 97
09/03/24 07:56 09/03/24 07:56 09/03/24 07:56 09/03/24 07:56 09/03/24 07:56
I&O
09/02/24 09/03/24 09/04/24
06:59 06:59 06:59
Intake Total 1080 / 1080
Output Total 1050 / 1050
Balance 30 / 30
Physical Exam
-
General: No Apparent Distress
Respiratory: Clear to Auscultation (Anteriorly) and Non Labored Respirations; Negative Accessory Resp Muscle Use
Cardiac: Regular Rhythm, S1/S2 and Tachycardic
GI: Soft, Nontender, Nondistended and Normal Bowel Sounds
Musculoskeletal: Other (Left BKA noted)
Neuro: AO x 3
Psych: Calm
Data Reviewed
-
Labs: Labs Reviewed by me
[2024-09-03 12:19] LABS: Glucose - Point of Care 62 mg/dl (70-99)
[2024-09-03] MEDS: NOVOLOG FLEXPEN SC ×2 (12:23→17:22)
[2024-09-03 15:00] VITALS: BP 130/73
--- NOTE | 2024-09-03 16:00 | CM ---
Patient seen at bedside in [address] [place] [address]. Patient stated that he left [facility] and did not want to return there. Patient stated CM was not allowed to call patient daughter. Patient previously indicated that his home was a condo that has 12 steps to
access. There is one rail on steps. He has a cane and rolling walker.
Prior to last admission patient stated that he drives. He has shower seat but no rails.
He has history of L BKA. Patient was in [facility] in the past and to [facility]. Patient stated that he wanted to go home and did not want to return to SNF at [facility]. Patient less interactive than during previous visits with this CM.
Pending PT/OT assessment and review of options patient may benefit from referral to SNF options. Patient has no previous PCP according to chart review and uses the [place] [facility] as well as [facility] in [place]. CM will continue to follow for
discharge planning needs.
Plan; SNF pending medical treatment plan
[2024-09-03 16:57] LABS: Glucose - Point of Care 115 mg/dl (70-99)
[2024-09-03] MEDS: TYLENOL PO (20:38)
[2024-09-03] MEDS: COLACE PO (20:38)
[2024-09-03 21:46] LABS: Glucose - Point of Care 135 mg/dl (70-99)
[2024-09-03] MEDS: SENOKOT PO (21:49)
[2024-09-03] MEDS: LANTUS SC (22:36)
[2024-09-03 23:09] VITALS: BP 134/76
[2024-09-04] MEDS: ZOSYN 50 IV ×5 (00:35→23:43)
[2024-09-04] MEDS: TYLENOL PO ×4 (00:35→19:36)
[2024-09-04 03:21] VITALS: BP 130/75
[2024-09-04 04:08] LABS: Glucose - Point of Care 140 mg/dl (70-99)
[2024-09-04 07:13] LABS: Glucose - Point of Care 144 mg/dl (70-99)
[2024-09-04 07:20] VITALS: BP 143/84
[2024-09-04 07:37] LABS: Hematocrit 28.1 % (39.0-52.0); Hemoglobin 9.9 g/dL (13.0-18.0); Mean Corp Hgb Conc. 35.2 g/dL (33.0-37.0); Mean Corpuscular Hgb 28.8 pg (27.0-31.0); Mean Corpuscular Volume 81.7 fL (80.0-94.0); Mean Platelet Volume 10.6 fL (7.4-10.4); Platelet Count 211 10^3/uL (130-400); Red Blood Cell Count 3.44 10^6/uL (4.70-6.10); Red Cell Dist. Width 14.2 % (11.5-14.5); White Blood Cell Count 11.8 10^3/uL (4.8-10.8)
[2024-09-04] MEDS: NOVOLOG FLEXPEN-MODERATE RESISTANCE SC ×3 (07:37→18:03)
[2024-09-04 07:56] LABS: Blood Urea Nitrogen 20 mg/dl (9-20); Calcium 8.4 mg/dl (8.4-10.2); Carbon Dioxide 24 mmol/L (22-30); Chloride 101 mmol/L (98-107); Estimated Creatinine Clearance 53 ml/min; Glucose 136 mg/dl (70-99); Potassium 3.9 mmol/L (3.5-5.1); Sodium 133 mmol/L (135-145); eGFR 56.93
[2024-09-04] MEDS: COLACE PO ×2 (07:56→19:26)
[2024-09-04] MEDS: FEOSOL 325 MG PO (08:23)
[2024-09-04] MEDS: ZESTRIL 10 MG PO (08:23)
[2024-09-04] MEDS: HEPARIN 5000 UNITS SC ×2 (08:23→19:26)
[2024-09-04] MEDS: TYLENOL 650 MG PO ×4 (08:23→23:43)
[2024-09-04] MEDS: ZOLOFT 25 MG PO (08:23)
[2024-09-04] MEDS: FLOMAX 0.8 MG PO (08:23)
[2024-09-04] MEDS: NORVASC 10 MG PO (08:24)
[2024-09-04] MEDS: NOVOLOG FLEXPEN 10 UNITS SC ×3 (08:24→18:05)
--- NOTE | 2024-09-04 09:42 | PTOTSP ---
Reviewed chart and attempted to see pt for PT evaluation but he continues to refuse to participate, stating he is still too weak. Tried to educate pt on need to get OOB to prevent further deconditioning and complications of prolonged bedrest and
prevent the need to go to rehab prior to returning home but he continued to refuse. RN is aware.
--- NOTE | 2024-09-04 10:49 | W.PN.HOSP.TC ---
Today's Communication/Plan
-
Repeat blood culture.
Continue with Zosyn.
Continue with PT and OT eval
Assessment / Plan
Assessment / Plan
A/P: Patient is an 74y M with PMH significant for HTN, DM-II and urinary retention who presents to ED complaining of fevers, malaise and abdominal pain for the past 24 hours.
CAUTI
Bacteremic UTI
Sepsis secondary to the above
Chronic Urinary Retention
BPH
- Patient presents with fever, tachycardia, leukocytosis and UA suggestive of infection. Afebrile today. Improving white count.
- Suspect new infection during Dominique removal / subsequent replacement over the past 2 days.
- Continue IV abx with Zosyn for now pending culture data. Proteus noted in the culture data so far, subspecies identification and sensitivities are pending. Repeat blood cultures today.
- Maintain Dominique catheter for now. Continue tamsulosin.
- Patient will need outpatient follow-up with Urology for next steps given failed TOV after 1 month of Dominique decompression.
Questionable Descending Colon Diverticulitis
- Patient has no LLQ abdominal pain or other such complaints at present.
- Timing of symptoms seems to suggest catheter manipulation as likely source > GI.
- IV Zosyn as noted above.
- Follow for any new / worsening symptoms.
- Will need eventual colonoscopy (previously recommended re: iron deficiency). Patient never had a colonoscopy. Advised about the importance of getting a colonoscopy as outpatient.
Benign Hypertension
- Stable. Continue home meds with holding parameters.
DM-II
-Poor glycemic control with hemoglobin A1c 9.8 but heading in the right direction from 14.5 in June this year.
- Stable. Continue basal : bolus insulin regimen. Blood sugars are under goal so far.
- Follow glucose and cover with SSI as needed.
-
Chronic Iron Deficiency Anemia
- Stable / improved. Hgb up from prior values.
- Continue iron supplementation.
- Eventual GI eval / endoscopic exam as noted above.
R Ankle Wound
L Stump Wound
- Wound Care eval for local care recommendations.
DVT Prophylaxis: Subcut Heparin
Code Status: Full
Anticipated Discharge: 24 - 48 hours
Subjective/Interval History
-
Date of Service: September 04, 2024
Patient feeling improved.
Denies fever chills.
Denies any nausea or vomiting.
No shortness of breath or chest pain.
He thinks he might be strong enough to go home after this hospitalization. He was at home for a month since discharge from rehab.
Objective Data
-
Labs:
Laboratory Results
09/04/24
06:45
WBC 11.8 H
Hgb 9.9 L
Hct 28.1 L
Plt Count 211
Sodium 133 L
Potassium 3.9
Chloride 101
Carbon Dioxide 24
BUN 20
Creatinine 1.3
Glucose 136 H
Calcium 8.4
Vital Signs:
Vital Signs
Temp Pulse Resp BP Pulse Ox
99.1 F 87 16 143/84 96
09/04/24 07:20 09/04/24 07:20 09/04/24 07:20 09/04/24 07:20 09/04/24 07:20
I&O
09/03/24 09/04/24 09/05/24
06:59 06:59 06:59
Intake Total 1080 / 1080 1660 / 1660
Output Total 1050 / 1050 1250 / 1250
Balance 30 / 30 410 / 410
Physical Exam
-
General: Comfortable
Respiratory: Clear to Auscultation and Non Labored Respirations; Negative Accessory Resp Muscle Use
Cardiac: Regular Rhythm and S1/S2; Negative Tachycardic
GI: Soft
Neuro: AO x 3
Psych: Calm; Negative Confused
Data Reviewed
-
Labs: Labs Reviewed by me
[2024-09-04 12:10] LABS: Glucose - Point of Care 109 mg/dl (70-99)
[2024-09-04 15:02] VITALS: BP 126/73
[2024-09-04 17:30] LABS: Glucose - Point of Care 111 mg/dl (70-99)
[2024-09-04] MEDS: SENOKOT PO (19:26)
[2024-09-04 21:50] LABS: Glucose - Point of Care 107 mg/dl (70-99)
[2024-09-04] MEDS: LANTUS SC (21:55)
[2024-09-04 23:20] VITALS: BP 137/82
[2024-09-05 03:11] VITALS: BP 142/81
[2024-09-05] MEDS: TYLENOL PO ×5 (04:34→23:30)
[2024-09-05] MEDS: ZOSYN 50 IV ×2 (05:27→11:53)
[2024-09-05 07:00] VITALS: BP 142/87
[2024-09-05 07:11] LABS: Glucose - Point of Care 122 mg/dl (70-99)
[2024-09-05] MEDS: NOVOLOG FLEXPEN-MODERATE RESISTANCE SC ×2 (09:06→18:11)
[2024-09-05] MEDS: NOVOLOG FLEXPEN 10 UNITS SC ×3 (09:07→18:11)
[2024-09-05] MEDS: FEOSOL 325 MG PO (09:12)
[2024-09-05] MEDS: ZESTRIL PO ×2 (09:13→09:15)
[2024-09-05] MEDS: FLOMAX 0.8 MG PO (09:13)
[2024-09-05] MEDS: NORVASC PO ×2 (09:13→09:15)
[2024-09-05] MEDS: HEPARIN SC (09:14)
[2024-09-05] MEDS: ZOLOFT PO (09:14)
[2024-09-05] MEDS: COLACE PO ×2 (09:14→21:20)
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
[2024-09-05 13:30] LABS: Glucose - Point of Care 179 mg/dl (70-99)
[2024-09-05] MEDS: NOVOLOG FLEXPEN-MODERATE RESISTANCE 1 UNITS SC (13:41)
[2024-09-05 15:00] VITALS: BP 115/79
[2024-09-05] MEDS: TYLENOL 650 MG PO (15:15)
[2024-09-05 15:36] VITALS: BP 115/79
--- NOTE | 2024-09-05 15:54 | W.PN.HOSP.TC ---
Addendum entered and electronically signed by Maude Lomeli MD 09/05/24 18:09:
I saw and evaluated the patient independently. I reviewed the resident�s note and agree with findings and plan as documented by Dr. Lambert.
GENERAL: well developed, well nourished, male in no apparent distress
HEENT: NC/AT -- no O2 requirements
HEART: regular rate and rhythm, +S1, +S2
LUNGS : clear to auscultation bilaterally
ABDOM: soft, nontender, nondistended, + bowel sounds
EXT: no cyanosis, clubbing, or edema--left BKA
NEUROLOGIC: slow to respond--? memory, dementia, other
: chronic bryson
sepsis (POA) due to Proteus mirabilis CAUTI with bacteremia--repeat no growth--- Suspect new infection during Bryson removal/subsequent replacement over the past 2 days--on cefazolin from zosyn--transition to oral in AM--cont tamsulosin--f/u with
urology for TOV (had and failed which prompted admission)
Chronic Urinary Retention likely due to BPH--cont chronic bryson--f/u with urology
New onset diarrhea--likely due to ABX--C. difficile negative for toxin--Start Imodium as needed
Questionable Descending Colon Diverticulitis--doubt--no pain--only CT finding--Timing of symptoms seems to suggest catheter manipulation as likely source > GI - Will need eventual colonoscopy (previously recommended re: iron deficiency). Patient
never had a colonoscopy. Advised about the importance of getting a colonoscopy as outpatient.
Essential Hypertension - Stable. Continue home meds with holding parameters.
DM-II--Poor glycemic control with hemoglobin A1c 9.8 but heading in the right direction from 14.5 in June this year-- Continue basal:bolus insulin regimen- Follow glucose and cover with SSI as needed.
Chronic Iron Deficiency Anemia--cont iron--need outpt GI work up
R Ankle Wound/L Stump Wound - Wound Care eval for local care recommendations.
DVT Proph--SC Heparin
Code Status-- Full code
Original Note:
Today's Communication/Plan
-
Encourage PT/OT
Imodium as needed for diarrhea
C. difficile toxin negative
Repeat blood cultures shows no growth in 24 hours
Transition to cefazolin 2 g IV q8, sensitivities are available.
Follow white count and temperature curve
Assessment / Plan
Assessment / Plan
A/P: Patient is an 74y M with PMH significant for HTN, DM-II and urinary retention who presents to ED complaining of fevers, malaise and abdominal pain for the past 24 hours.
CAUTI
Bacteremic UTI positive for protease mirabilis
Sepsis secondary to the above
Chronic Urinary Retention
BPH
- Patient presents with fever, tachycardia, leukocytosis and UA suggestive of infection. Afebrile today. Improving white count.
- Suspect new infection during Bryson removal / subsequent replacement over the past 2 days.
- Transition to cefazolin 2g IV q8. Proteus Mirabilis recovered on urine cx and blood cultures x 2/2 , sensitivities available.
-Repeat blood cultures in 24 h shows no growth , await final results.
- Maintain Bryson catheter for now. Continue tamsulosin.
- Patient will need outpatient follow-up with Urology for next steps given failed TOV after 1 month of Bryson decompression.
- Follow white count and temperature curve
New onset diarrhea
C. difficile negative for toxin
Start Imodium as needed
Questionable Descending Colon Diverticulitis
- Patient has no LLQ abdominal pain or other such complaints at present.
- Timing of symptoms seems to suggest catheter manipulation as likely source > GI.
- IV Zosyn as noted above.
- Follow for any new / worsening symptoms.
- Will need eventual colonoscopy (previously recommended re: iron deficiency). Patient never had a colonoscopy. Advised about the importance of getting a colonoscopy as outpatient.
Benign Hypertension
- Stable. Continue home meds with holding parameters.
DM-II
-Poor glycemic control with hemoglobin A1c 9.8 but heading in the right direction from 14.5 in June this year.
- Stable. Continue basal : bolus insulin regimen. Blood sugars are under goal so far.
- Follow glucose and cover with SSI as needed.
-
Chronic Iron Deficiency Anemia
- Stable / improved. Hgb up from prior values.
- Continue iron supplementation.
- Eventual GI eval / endoscopic exam as noted above.
R Ankle Wound
L Stump Wound
- Wound Care eval for local care recommendations.
DVT Prophylaxis: Subcut Heparin
Code Status: Full
Anticipated Discharge: > 48 hours
Subjective/Interval History
-
Date of Service: September 05, 2024
patient seems confused on patient interview, declines moving out of bed to ambulate. Reports of diarrhea this am .
Objective Data
-
Vital Signs:
Vital Signs
Temp Pulse Resp BP Pulse Ox
99.6 F 89 17 115/79 98
09/05/24 15:00 09/05/24 15:00 09/05/24 15:00 09/05/24 15:00 09/05/24 15:00
I&O
09/04/24 09/05/24 09/06/24
06:59 06:59 06:59
Intake Total 1660 / 1660 1300 / 1300
Output Total 1250 / 1250 1700 / 1700
Balance 410 / 410 -400 / -400
Review of Systems
-
History Source: Patient
All other systems: Reviewed and negative (Except mentioned)
Abdomen/GI: Reports Diarrhea
Physical Exam
-
General: No Apparent Distress and Comfortable
HEENT: Normocephalic and Atraumatic
Respiratory: Clear to Auscultation
Cardiac: Regular Rhythm and S1/S2
GI: Soft, Nontender and Nondistended
Genito-urinary: Bryson
Musculoskeletal: Other (Left BKA)
Neuro: Awake
Psych: Calm
Data Reviewed
-
CT Scan: Report Reviewed by me and Discussed with Physician
Labs: Labs Reviewed by me and Discussed with Physician
[2024-09-05 17:30] LABS: Glucose - Point of Care 120 mg/dl (70-99)
[2024-09-05 17:50] LABS: % Basophils 0.2 % (0-2); % Eosinophils 1.4 % (0-6); % Immature Granulocytes 0.4 % (0-0.5); % Lymphocytes 16.3 % (20.5-51.1); % Monocytes 10.6 % (1.7-9.3); % Neutrophils 71.1 % (42.2-75.2); Absolute Eosinophils 0.1 10^3/uL (0-0.7); Absolute Lymphocytes 1.4 10^3/uL (1.2-3.4); Absolute Monocytes 0.9 10^3/uL (0.1-0.6); Absolute Neutrophils 5.9 10^3/uL (1.4-6.5); Hematocrit 29.4 % (39.0-52.0); Hemoglobin 10.3 g/dL (13.0-18.0); Mean Corpuscular Hgb 28.7 pg (27.0-31.0); Mean Corpuscular Volume 81.9 fL (80.0-94.0); Mean Platelet Volume 9.7 fL (7.4-10.4); Nucleated Red Blood Cells % 0 % (-); Platelet Count 243 10^3/uL (130-400); Red Blood Cell Count 3.59 10^6/uL (4.70-6.10); Red Cell Dist. Width 14.5 % (11.5-14.5); White Blood Cell Count 8.3 10^3/uL (4.8-10.8)
[2024-09-05] MEDS: ANCEF 10 IV (18:11)
[2024-09-05] MEDS: SENOKOT PO (21:20)
[2024-09-05] MEDS: HEPARIN 5000 UNITS SC (21:34)
[2024-09-05 22:11] LABS: Glucose - Point of Care 108 mg/dl (70-99)
[2024-09-05] MEDS: LANTUS SC (22:50)
[2024-09-05 23:30] VITALS: BP 129/76
[2024-09-06] MEDS: ANCEF 10 IV ×3 (02:35→17:30)
[2024-09-06] MEDS: TYLENOL PO ×5 (04:38→21:21)
[2024-09-06 06:59] LABS: Glucose - Point of Care 136 mg/dl (70-99)
[2024-09-06 07:00] VITALS: BP 147/95
[2024-09-06] MEDS: NOVOLOG FLEXPEN-MODERATE RESISTANCE SC (08:34)
--- NOTE | 2024-09-06 08:37 | W.PN.HOSP.TC ---
Addendum entered and electronically signed by Maude Lomeli MD 09/06/24 15:47:
I saw and evaluated the patient independently. I reviewed the resident�s note and agree with findings and plan as documented by Dr. Lambert.
GENERAL: well developed, well nourished, male in no apparent distress
HEENT: NC/AT -- no O2 requirements
HEART: regular rate and rhythm, +S1, +S2
LUNGS : clear to auscultation bilaterally
ABDOM: soft, nontender, nondistended, + bowel sounds
EXT: no cyanosis, clubbing, or edema--left BKA
NEUROLOGIC: slow to respond--? memory, dementia, other
: chronic bryson
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
tamsulosin--f/u with urology for TOV (had and failed which prompted admission)
Chronic Urinary Retention likely due to BPH--cont chronic bryson--f/u with urology at d/c
New onset diarrhea--likely due to ABX--C. difficile negative for toxin, positive for antigen--Start Imodium as needed
Questionable Descending Colon Diverticulitis--doubt--no pain--only CT finding--Timing of symptoms seems to suggest catheter manipulation as likely source > GI - Will need eventual colonoscopy (previously recommended re: iron deficiency). Patient
never had a colonoscopy. Advised about the importance of getting a colonoscopy as outpatient.
Essential Hypertension - Stable. Continue home meds with holding parameters.
DM-II--Poor glycemic control with hemoglobin A1c 9.8 but heading in the right direction from 14.5 in June this year-- Continue basal:bolus insulin regimen- Follow glucose and cover with SSI as needed.
Chronic Iron Deficiency Anemia--cont iron--need outpt GI work up
R Ankle Wound/L Stump Wound - Wound Care eval for local care recommendations.
DVT Proph--SC Heparin
Code Status-- Full code
pt refusing to go to SNF, refusing to work with therapy, refusing to take meds---will consult psych for capacity
Original Note:
Today's Communication/Plan
-
Consult psychiatry for capacity assessment. Patient refuses SNF, direct support professional home health. He is cut off from all his family members. He refuses to get in touch with them and refuses all other help PT recommended SNF. Moving from bed to chair needs 2 people
assistance. CM is aware.
Assessment / Plan
Assessment / Plan
A/P: Patient is an 74y M with PMH significant for HTN, DM-II and urinary retention who presents to ED complaining of fevers, malaise and abdominal pain for the past 24 hours.
CAUTI
Bacteremic UTI positive for protease mirabilis
Sepsis secondary to the above
Chronic Urinary Retention
BPH
- Patient presents with fever, tachycardia, leukocytosis and UA suggestive of infection. Afebrile today. Improving white count.
- Suspect new infection during Bryson removal / subsequent replacement over the past 2 days.
- Transition to cefazolin 2g IV q8. Proteus Mirabilis recovered on urine cx and blood cultures x 2/2 , sensitivities available.
-Repeat blood cultures shows no growth till date , await final results.
- Will transition to oral abx for 2 weeks from the start of negative blood culture at discharge.
- Maintain Bryson catheter for now. Continue tamsulosin.
- Patient will need outpatient follow-up with Urology for next steps given failed TOV after 1 month of Bryson decompression.
- Follow white count and temperature curve
Consult psychiatry for capacity assessment. Patient refuses SNF, direct support professional home health. PT recommended SNF. He sits on the chair with 2 people assistance.
He is cut off from all his family member. CM on board.
New onset diarrhea
C. difficile negative for toxin
Start Imodium as needed
Questionable Descending Colon Diverticulitis
- Patient has no LLQ abdominal pain or other such complaints at present.
- Timing of symptoms seems to suggest catheter manipulation as likely source > GI.
- IV Zosyn as noted above.
- Follow for any new / worsening symptoms.
- Will need eventual colonoscopy (previously recommended re: iron deficiency). Patient never had a colonoscopy. Advised about the importance of getting a colonoscopy as outpatient.
Benign Hypertension
- Stable. Continue home meds with holding parameters.
DM-II
-Poor glycemic control with hemoglobin A1c 9.8 but heading in the right direction from 14.5 in June this year.
- Stable. Continue basal : bolus insulin regimen. Blood sugars are under goal so far.
- Follow glucose and cover with SSI as needed.
-
Chronic Iron Deficiency Anemia
- Stable / improved. Hgb up from prior values.
- Continue iron supplementation.
- Eventual GI eval / endoscopic exam as noted above.
R Ankle Wound
L Stump Wound
- Wound Care eval for local care recommendations.
DVT Prophylaxis: Subcut Heparin
Code Status: Full
Anticipated Discharge: 24 - 48 hours
Subjective/Interval History
-
Date of Service: September 06, 2024
no overnight events
Objective Data
-
Labs:
Laboratory Results
09/06/24
07:31
WBC Pending
Hgb Pending
Hct Pending
Plt Count Pending
Sodium Pending
Potassium Pending
Chloride Pending
Carbon Dioxide Pending
BUN Pending
Creatinine Pending
Glucose Pending
Calcium Pending
Vital Signs:
Vital Signs
Temp Pulse Resp BP Pulse Ox
98.9 F 115 16 147/95 97
09/06/24 07:00 09/06/24 07:00 09/06/24 07:00 09/06/24 07:00 09/06/24 07:00
I&O
09/05/24 09/06/24 09/07/24
06:59 06:59 06:59
Intake Total 1300 / 1300 1290 / 1290
Output Total 1700 / 1700 1974
Balance -400 / -400 -685 / -685
Review of Systems
-
All other systems: Reviewed and negative
Physical Exam
-
General: No Apparent Distress and Comfortable
HEENT: Normocephalic and Atraumatic
Respiratory: Clear to Auscultation
Cardiac: Regular Rhythm and S1/S2
GI: Soft, Nontender and Nondistended
Genito-urinary: Bryson (draining clear yellow urine )
Musculoskeletal: No Edema
Neuro: Awake and Alert
Psych: Calm
Data Reviewed
-
Labs: Labs Reviewed by me and Discussed with Physician
[2024-09-06 08:38] LABS: % Basophils 0.2 % (0-2); % Eosinophils 1.5 % (0-6); % Immature Granulocytes 0.7 % (0-0.5); % Lymphocytes 17.5 % (20.5-51.1); % Monocytes 10.2 % (1.7-9.3); % Neutrophils 69.9 % (42.2-75.2); Absolute Eosinophils 0.1 10^3/uL (0-0.7); Absolute Immature Granulocytes 0.1 10^3/uL (0-0.05); Absolute Lymphocytes 1.6 10^3/uL (1.2-3.4); Absolute Monocytes 0.9 10^3/uL (0.1-0.6); Absolute Neutrophils 6.4 10^3/uL (1.4-6.5); Hematocrit 27.5 % (39.0-52.0); Hemoglobin 9.9 g/dL (13.0-18.0); Mean Corpuscular Hgb 29.2 pg (27.0-31.0); Mean Corpuscular Volume 81.1 fL (80.0-94.0); Mean Platelet Volume 10.1 fL (7.4-10.4); Nucleated Red Blood Cells % 0 % (-); Platelet Count 251 10^3/uL (130-400); Red Blood Cell Count 3.39 10^6/uL (4.70-6.10); White Blood Cell Count 9.1 10^3/uL (4.8-10.8)
[2024-09-06] MEDS: FLOMAX 0.8 MG PO (08:39)
[2024-09-06] MEDS: NOVOLOG FLEXPEN 10 UNITS SC ×3 (08:39→17:23)
[2024-09-06] MEDS: COLACE PO ×2 (08:40→21:21)
[2024-09-06 08:44] LABS: Blood Urea Nitrogen 18 mg/dl (9-20); Calcium 8.3 mg/dl (8.4-10.2); Carbon Dioxide 25 mmol/L (22-30); Chloride 100 mmol/L (98-107); Estimated Creatinine Clearance 63 ml/min; Glucose 135 mg/dl (70-99); Potassium 3.7 mmol/L (3.5-5.1); Sodium 132 mmol/L (135-145); eGFR > 60.00
[2024-09-06] MEDS: ZESTRIL PO (08:45)
[2024-09-06] MEDS: NORVASC PO (08:45)
[2024-09-06] MEDS: ZOLOFT PO (08:51)
[2024-09-06] MEDS: HEPARIN SC (08:51)
[2024-09-06] MEDS: FEOSOL PO (08:51)
[2024-09-06] MEDS: NSS 1000 IV (09:46)
[2024-09-06 11:15] VITALS: BP 138/77; PULSE 92
[2024-09-06 11:16] VITALS: BP 138/77; PULSE 92; O2SAT 99
--- NOTE | 2024-09-06 11:32 | CM ---
Patient seen at bedside. Therapy assessed patient and recommending SNF. CM will review with patient options and make referrals. CM will continue to look for SNF options and will need auth. CM will continue to follow for discharge planning needs.
Plan; SNF
[2024-09-06 12:18] LABS: Glucose - Point of Care 155 mg/dl (70-99)
[2024-09-06] MEDS: NOVOLOG FLEXPEN-MODERATE RESISTANCE 1 UNITS SC ×2 (13:19→17:22)
[2024-09-06 15:00] VITALS: BP 125/76
[2024-09-06 17:18] LABS: Glucose - Point of Care 182 mg/dl (70-99)
[2024-09-06] MEDS: SENOKOT PO (21:21)
[2024-09-06 21:30] LABS: Glucose - Point of Care 165 mg/dl (70-99)
[2024-09-06] MEDS: LANTUS 0.24 UNITS SC (21:36)
[2024-09-06] MEDS: HEPARIN 5000 UNITS SC (21:36)
[2024-09-06 23:31] VITALS: BP 128/80
[2024-09-07] MEDS: TYLENOL PO ×6 (00:33→21:27)
[2024-09-07] MEDS: ANCEF 10 IV ×3 (02:11→18:08)
[2024-09-07 07:12] LABS: Glucose - Point of Care 162 mg/dl (70-99)
[2024-09-07 07:55] VITALS: BP 126/62
[2024-09-07] MEDS: FLOMAX 0.8 MG PO (08:11)
[2024-09-07] MEDS: FEOSOL PO (08:13)
[2024-09-07] MEDS: COLACE PO ×2 (08:13→21:27)
[2024-09-07] MEDS: HEPARIN 5000 UNITS SC ×2 (08:13→21:27)
[2024-09-07] MEDS: NORVASC PO (08:14)
[2024-09-07] MEDS: NOVOLOG FLEXPEN 10 UNITS SC ×3 (08:15→18:07)
[2024-09-07] MEDS: ZESTRIL PO (08:15)
[2024-09-07] MEDS: ZOLOFT PO (08:15)
[2024-09-07] MEDS: NOVOLOG FLEXPEN-MODERATE RESISTANCE 1 UNITS SC ×2 (08:16→13:01)
[2024-09-07 08:35] LABS: Blood Urea Nitrogen 20 mg/dl (9-20); Calcium 8.3 mg/dl (8.4-10.2); Carbon Dioxide 25 mmol/L (22-30); Chloride 104 mmol/L (98-107); Estimated Creatinine Clearance 77 ml/min; Glucose 171 mg/dl (70-99); Potassium 3.9 mmol/L (3.5-5.1); Sodium 135 mmol/L (135-145); eGFR > 60.00
[2024-09-07 11:22] VITALS: BP 137/93; PULSE 80; O2SAT 100
[2024-09-07 11:54] LABS: Glucose - Point of Care 216 mg/dl (70-99)
--- NOTE | 2024-09-07 12:54 | CON.MD ---
Consultation - Medical
-
patient seen chart reviewed. discussed at length with nursing, dr morrison and cm. mr salas is a 74 year old man w ho was admitted to with fever abdominal pain and weakness. he had had a bryson catheter in place which had not been changed
for about a month according to the chart and was found to be in jro sepsis. the patient has a number of ongoing medical issues including PAD which resulted in a left bka. see medical hx for other comorbidities. during this stay he had failed a
voiding test. he has bee noted to be more anemic. there is ? diverticulitis on abd imaging and diarrhea also noted presumed secondaty to antibiotics. he had refused snf as a disposition and intermittently has refused some of his medications
hence this consult for medical decision making capacity. by way of explanation for these factors he tells me that he does not like to take medications and has had negative reactions to some of the meds he has taken and now is fearful meds will
nauseate him. he also is fearful of going to snf as he has been very unhappy in the [facility] where he is residing. the patient also explained to me that problem number one for him is 'this catheter' he does not understand why it cannot
be removed and 'i want to see a urologist' he at one point called his best friend 'leda' and handed me the phone. before i could speak leda said, 'has he seen a urologist?'(answer is no). mr salas denies that he is depressed although he is
taking sertraline 25 mg. i did not question him much further about this today as i felt it was more important to get him to continue talking rather than challenge him. i will ask him more about that tomorrow. he does not have suicidal thoughts.
there is nothing to suggest psychosis. i also spoke w pt who reported he seemed off balance when putting on prosthesis. the patient said 'i was sitting on the bed. the bed has a depression in the middle. my butt was in the depression. how could i be
balanced'.
past psych hx no hospitalizations. patient is taking sertraline . this will be elucidated when i see him tomorrow
substance abuse ' i don't even drink alcohol'
family hx non contributory
medical hx see above patient w hx pad has bka dm hx of respiratory failure in the past chronic urinary retention w indwelling bryson (has bph) fe def anemia hx gangrene hld mrsa carrier htn r ankly wound left stump wound
social patient is has six kids and grandkids as well. he is very upset w his family whom he feels are not attentive to him. 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
for him. he does have friends and quite readily got 'leda ' on the phone to talk w me. 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
mse alert ox3 initially he was rather reluctant to talk to me. when i explained that i just wanted to understand his thought process and help him in any way i can he became quite cooperative and even talkative. speech and thought process okay. mood
was irritated at the start but improved considerably but he end of my time with him. no psychosis affect appropriate to content of thought intelligence above aver insight judgment fair. i did not formally test cogntion which appeared grossly
intact.
dx adjustment disorder may be underlying dysthymia but i would not say he is depressed
recommendation discussed w dr morrison. the patient wants to see urology and hopefully get rid of catheter. she will likely do another voiding trial. he agrees to take things 'one step at a time' but he insists the first thing should be
addressing the bryson. i do feel at this moment that he has medical decision making capacity. i will continue to follow and offer support. will address the issue of sertraline tomorrow.
--- NOTE | 2024-09-07 14:45 | W.PN.HOSP.TC ---
Addendum entered and electronically signed by Maude Lomeli MD 09/07/24 15:02:
I saw and evaluated the patient independently. I reviewed the resident�s note and agree with findings and plan as documented by Dr. Lambert.
GENERAL: well developed, well nourished, male in no apparent distress
HEENT: NC/AT -- no O2 requirements
HEART: regular rate and rhythm, +S1, +S2
LUNGS : clear to auscultation bilaterally
ABDOM: soft, nontender, nondistended, + bowel sounds
EXT: no cyanosis, clubbing, or edema--left BKA
NEUROLOGIC: slow to respond--? memory, dementia, other
: chronic bryosn
Had long this conversation with patient today than I did in the last 3 days. He is frustrated that no one is listening to him regarding his urinary catheter. He is frustrated that therapy thinks that he is unstable because he is 'sitting in a hole
in his bed with the bed molding to his butt'.
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
tamsulosin--will consult urology--following up as outpt has not been working
Chronic Urinary Retention likely due to BPH--cont chronic bryson--consult urology f/u at d/c
New onset diarrhea--likely due to ABX--C. difficile negative for toxin, positive for antigen--Start Imodium as needed
Questionable Descending Colon Diverticulitis--doubt--no pain--only CT finding--Timing of symptoms seems to suggest catheter manipulation as likely source > GI - Will need eventual colonoscopy (previously recommended re: iron deficiency). Patient
never had a colonoscopy. Advised about the importance of getting a colonoscopy as outpatient.
Essential Hypertension - Stable. Continue home meds with holding parameters.
DM-II--Poor glycemic control with hemoglobin A1c 9.8 but heading in the right direction from 14.5 in June this year-- Continue basal:bolus insulin regimen- Follow glucose and cover with SSI as needed.
Chronic Iron Deficiency Anemia--cont iron--need outpt GI work up
R Ankle Wound/L Stump Wound (POA)-- Wound Care eval for local care recommendations.
DVT Proph--SC Heparin
Code Status-- Full code
Appreciate psych--patient does appear to have capacity to make his own decisions
Original Note:
Today's Communication/Plan
-
Psych on board, patient has the capacity to make decisions per their assessment. Will consult urology as patient wants to get rid of the catheter and requests to see a urologist. Patient wishes to take things ' one step at a time'. fo now. Psych
will continue to follow.
Assessment / Plan
Assessment / Plan
A/P: Patient is an 74y M with PMH significant for HTN, DM-II and urinary retention who presents to ED complaining of fevers, malaise and abdominal pain for the past 24 hours.
CAUTI
Bacteremic UTI positive for protease mirabilis
Sepsis secondary to the above
Chronic Urinary Retention
BPH
- Patient presents with fever, tachycardia, leukocytosis and UA suggestive of infection. Afebrile today. Improving white count.
- Suspect new infection during Bryson removal / subsequent replacement over the past 2 days.
- Transition to cefazolin 2g IV q8. Proteus Mirabilis recovered on urine cx and blood cultures x 2/2 , sensitivities available.
-Repeat blood cultures shows no growth till date , await final results.
- Will transition to oral abx for 2 weeks from the start of negative blood culture at discharge.
- Maintain Bryson catheter for now. Continue tamsulosin.
- Patient will need outpatient follow-up with Urology for next steps given failed TOV after 1 month of Bryson decompression.
- Follow white count and temperature curve
Psych on board, patient has the capacity to make decisions per their assessment. Will consult urology as patient wants to get rid of the catheter and requests to see a urologist. Patient wishes to take things ' one step at a time'. fo now. Psych
will continue to follow.
New onset diarrhea
C. difficile negative for toxin
Start Imodium as needed
Questionable Descending Colon Diverticulitis
- Patient has no LLQ abdominal pain or other such complaints at present.
- Timing of symptoms seems to suggest catheter manipulation as likely source > GI.
- IV Zosyn as noted above.
- Follow for any new / worsening symptoms.
- Will need eventual colonoscopy (previously recommended re: iron deficiency). Patient never had a colonoscopy. Advised about the importance of getting a colonoscopy as outpatient.
Benign Hypertension
- Stable. Continue home meds with holding parameters.
DM-II
-Poor glycemic control with hemoglobin A1c 9.8 but heading in the right direction from 14.5 in June this year.
- Stable. Continue basal : bolus insulin regimen. Blood sugars are under goal so far.
- Follow glucose and cover with SSI as needed.
-
Chronic Iron Deficiency Anemia
- Stable / improved. Hgb up from prior values.
- Continue iron supplementation.
- Eventual GI eval / endoscopic exam as noted above.
R Ankle Wound
L Stump Wound
- Wound Care eval for local care recommendations.
DVT Prophylaxis: Subcut Heparin
Code Status: Full
Anticipated Discharge: > 48 hours
Subjective/Interval History
-
Date of Service: September 07, 2024
No overnight events
Objective Data
-
Labs:
Laboratory Results
09/07/24
07:32
Sodium 135
Potassium 3.9
Chloride 104
Carbon Dioxide 25
BUN 20
Creatinine 0.9
Glucose 171 H
Calcium 8.3 L
Vital Signs:
Vital Signs
Temp Pulse Resp BP Pulse Ox
98.1 F 95 16 126/62 98
09/07/24 07:55 09/07/24 07:55 09/07/24 07:55 09/07/24 07:55 09/07/24 07:55
I&O
09/06/24 09/07/24 09/08/24
06:59 06:59 06:59
Intake Total 1290 / 1290 2410 / 2410
Output Total 1974 1275 / 1275 500 / 500
Balance -685 / -685 1135 / 1135 -500 / -500
Review of Systems
-
History Source: Patient
All other systems: Reviewed and negative
Physical Exam
-
General: No Apparent Distress and Comfortable
HEENT: Normocephalic and Atraumatic
Respiratory: Clear to Auscultation
Cardiac: Regular Rhythm and S1/S2
GI: Soft, Nontender and Nondistended
Genito-urinary: Bryson
Musculoskeletal: No Edema
Neuro: AO x 3
Psych: Calm
Data Reviewed
-
Labs: Labs Reviewed by me and Discussed with Physician
[2024-09-07 14:58] VITALS: BP 125/67
[2024-09-07 16:56] LABS: Glucose - Point of Care 239 mg/dl (70-99)
[2024-09-07] MEDS: NOVOLOG FLEXPEN-MODERATE RESISTANCE 3 UNITS SC (18:08)
[2024-09-07] MEDS: SENOKOT PO (21:27)
[2024-09-07 21:32] LABS: Glucose - Point of Care 133 mg/dl (70-99)
[2024-09-07] MEDS: LANTUS 0.24 UNITS SC (21:33)
--- NOTE | 2024-09-07 22:02 | W.PN.URO.CBU ---
Today's Communication / Plan
-
needs outpatient folow up
Assessment / Plan
-
ongoing urinary retention in diabetic failed vt on flomax dxs include bph or atonic bladder of neuropathy of diabetes Pt aware needs urodynamics abnd cysto which are not offered during this hospital; stay Requetsed outpatient follow up
Diagnosis
-
Date of Service: September 07, 2024
-
Patient Diagnosis:urinary retention failed vt
Post Op Day:
Subjective
-
cannot void
Objective
-
Vital Signs
Temp Pulse Resp BP Pulse Ox
97.6 F 101 16 125/67 98
09/07/24 14:58 09/07/24 14:58 09/07/24 14:58 09/07/24 14:58 09/07/24 14:58
Intake and Output
09/06/24 09/07/24 09/08/24
06:59 06:59 06:59
Intake Total 1290 / 1290 2410 / 2410 580 / 580
Output Total 1974 1275 / 1275 700 / 700
Balance -685 / -685 1135 / 1135 -120 / -120
Intake:
Oral fluids 1240 / 1240 1100 / 1100 580 / 580
IV fluids (Total) 1300 / 1300
IV piggybacks 50 / 50 10 / 10
Output:
Urine, Bryson 1974 1275 / 1275 700 / 700
Other:
Number of unmeasured liquid
stools
Rectum 1
Laboratory Results
09/06/24 07:31
09/07/24 07:32
Review of Systems
-
: Difficulty Voiding
Physical Exam
-
General - well developed, well nourished, no acute distress
Chest - clear bilaterally
Abdomen - soft, non-tender, positive bowel sounds, no CVAT, no incisional pain or distention
Genitalia - normal
Rectal - normal
Skin - warm & dry with no rash
Neuro - AOx3, no motor deficits
Extremities - no clubbing, no cyanosis, no edema
Incision - clean, dry
Dressing - clean, dry, intact
Counseling
-
keep bryson
Care Review
Data Reviewed
Discussed with: Hospitalist and Nursing
[2024-09-07 23:00] VITALS: BP 128/82
[2024-09-08] MEDS: TYLENOL PO ×4 (00:45→12:59)
[2024-09-08] MEDS: ANCEF 10 IV ×3 (02:26→18:22)
[2024-09-08 02:33] LABS: Glucose - Point of Care 82 mg/dl (70-99)
[2024-09-08 07:00] VITALS: BP 133/79
[2024-09-08 07:03] LABS: Glucose - Point of Care 100 mg/dl (70-99)
[2024-09-08 07:52] LABS: Blood Urea Nitrogen 20 mg/dl (9-20); Calcium 8.6 mg/dl (8.4-10.2); Carbon Dioxide 29 mmol/L (22-30); Chloride 103 mmol/L (98-107); Estimated Creatinine Clearance 63 ml/min; Glucose 103 mg/dl (70-99); Sodium 137 mmol/L (135-145); eGFR > 60.00
[2024-09-08 08:10] LABS: Hematocrit 27.8 % (39.0-52.0); Hemoglobin 9.8 g/dL (13.0-18.0); Mean Corp Hgb Conc. 35.3 g/dL (33.0-37.0); Mean Corpuscular Hgb 28.7 pg (27.0-31.0); Mean Corpuscular Volume 81.3 fL (80.0-94.0); Mean Platelet Volume 9.3 fL (7.4-10.4); Platelet Count 302 10^3/uL (130-400); Red Blood Cell Count 3.42 10^6/uL (4.70-6.10); Red Cell Dist. Width 14.6 % (11.5-14.5); White Blood Cell Count 10.7 10^3/uL (4.8-10.8)
[2024-09-08] MEDS: NOVOLOG FLEXPEN-MODERATE RESISTANCE SC ×2 (08:35→12:58)
[2024-09-08] MEDS: FLOMAX 0.8 MG PO (08:45)
[2024-09-08] MEDS: HEPARIN 5000 UNITS SC ×2 (08:56→21:56)
[2024-09-08] MEDS: NORVASC PO (09:09)
[2024-09-08] MEDS: COLACE PO (09:09)
[2024-09-08] MEDS: FEOSOL PO (09:09)
[2024-09-08] MEDS: ZESTRIL PO (09:10)
[2024-09-08] MEDS: ZOLOFT PO (09:10)
[2024-09-08] MEDS: NOVOLOG FLEXPEN 10 UNITS SC ×3 (09:11→17:58)
--- NOTE | 2024-09-08 12:00 | W.PN.HOSP.TC ---
Addendum entered and electronically signed by Maude Lomeli MD 09/08/24 14:56:
I saw and evaluated the patient independently. I reviewed the resident�s note and agree with findings and plan as documented by Dr. Lambert.
GENERAL: well developed, well nourished, male in no apparent distress
HEENT: NC/AT -- no O2 requirements
HEART: regular rate and rhythm, +S1, +S2
LUNGS : clear to auscultation bilaterally
ABDOM: soft, nontender, nondistended, + bowel sounds
EXT: no cyanosis, clubbing, or edema--left BKA
NEUROLOGIC: weak but much improved
: chronic bryson
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
tamsulosin--apprec urology--called office and waiting for appointment to be relayed in order to put on his d/c paperwork
Chronic Urinary Retention likely due to BPH--cont chronic bryson--apprec urology f/u at d/c
New onset diarrhea--likely due to ABX--C. difficile negative for toxin, positive for antigen--Start Imodium as needed
Questionable Descending Colon Diverticulitis--doubt--no pain--only CT finding--Timing of symptoms seems to suggest catheter manipulation as likely source > GI - Will need eventual colonoscopy (previously recommended re: iron deficiency). Patient
never had a colonoscopy. Advised about the importance of getting a colonoscopy as outpatient.
Essential Hypertension - Stable. Continue home meds with holding parameters.
DM-II--Poor glycemic control with hemoglobin A1c 9.8 but heading in the right direction from 14.5 in June this year-- Continue basal:bolus insulin regimen- Follow glucose and cover with SSI as needed.
Chronic Iron Deficiency Anemia--cont iron--need outpt GI work up
R Ankle Wound/L Stump Wound (POA)-- Wound Care eval for local care recommendations.
DVT Proph--SC Heparin
Code Status-- Full code
Appreciate psych--patient does appear to have capacity to make his own decisions--wants to go home
Original Note:
Today's Communication/Plan
-
Urology recommends outpatient follow-up
Patient is slightly convinced to go to SNF, PT/OT recommends skilled rehab. CM aware. Further discussion which facility 'he would like to go' if available.
Assessment / Plan
Assessment / Plan
A/P: Patient is an 74y M with PMH significant for HTN, DM-II and urinary retention who presents to ED complaining of fevers, malaise and abdominal pain for the past 24 hours.
CAUTI
Bacteremic UTI positive for protease mirabilis
Sepsis secondary to the above
Chronic Urinary Retention
BPH
- Patient presents with fever, tachycardia, leukocytosis and UA suggestive of infection. Afebrile today. Improving white count.
- Suspect new infection during Bryson removal / subsequent replacement over the past 2 days.
- Transition to cefazolin 2g IV q8. Proteus Mirabilis recovered on urine cx and blood cultures x 2/2 , sensitivities available.
-Repeat blood cultures shows no growth till date , await final results.
- Will transition to oral abx for 2 weeks from the start of negative blood culture at discharge.
- Maintain Bryson catheter for now. Continue tamsulosin.
- Patient will need outpatient follow-up with Urology for next steps given failed TOV after 1 month of Bryson decompression.
- Follow white count and temperature curve
- Appreciate psychiatry input
- Urology recommends outpatient follow-up, no new interventions.
New onset diarrhea
C. difficile negative for toxin
Start Imodium as needed
Questionable Descending Colon Diverticulitis
- Patient has no LLQ abdominal pain or other such complaints at present.
- Timing of symptoms seems to suggest catheter manipulation as likely source > GI.
- IV Zosyn as noted above.
- Follow for any new / worsening symptoms.
- Will need eventual colonoscopy (previously recommended re: iron deficiency). Patient never had a colonoscopy. Advised about the importance of getting a colonoscopy as outpatient.
Benign Hypertension
- Stable. Continue home meds with holding parameters.
DM-II
-Poor glycemic control with hemoglobin A1c 9.8 but heading in the right direction from 14.5 in June this year.
- Stable. Continue basal : bolus insulin regimen. Blood sugars are under goal so far.
- Follow glucose and cover with SSI as needed.
-
Chronic Iron Deficiency Anemia
- Stable / improved. Hgb up from prior values.
- Continue iron supplementation.
- Eventual GI eval / endoscopic exam as noted above.
R Ankle Wound
L Stump Wound
- Wound Care eval for local care recommendations.
DVT Prophylaxis: Subcut Heparin
Code Status: Full
Anticipated Discharge: 24 - 48 hours
Subjective/Interval History
-
Date of Service: September 08, 2024
No overnight events
Objective Data
-
Labs:
Laboratory Results
09/08/24
06:35
WBC 10.7
Hgb 9.8 L
Hct 27.8 L
Plt Count 302 D
Sodium 137
Potassium 4.0
Chloride 103
Carbon Dioxide 29
BUN 20
Creatinine 1.1
Glucose 103 H
Calcium 8.6
Vital Signs:
Vital Signs
Temp Pulse Resp BP Pulse Ox
97.5 F 74 16 133/79 99
09/08/24 07:00 09/08/24 07:00 09/08/24 07:00 09/08/24 07:00 09/08/24 07:00
I&O
09/07/24 09/08/24 09/09/24
06:59 06:59 06:59
Intake Total 2410 / 2410 580 / 580
Output Total 1275 / 1275 1800 / 1800
Balance 1135 / 1135 -1220 / -1220
Review of Systems
-
History Source: Patient
All other systems: Reviewed and negative
Physical Exam
-
General: No Apparent Distress and Comfortable
HEENT: Normocephalic and Atraumatic
Respiratory: Clear to Auscultation
Cardiac: Regular Rhythm and S1/S2
GI: Soft, Nontender and Nondistended
Genito-urinary: Bryson
Musculoskeletal: No Edema
Neuro: AO x 3
Psych: Calm
Data Reviewed
-
Labs: Labs Reviewed by me and Discussed with Physician
[2024-09-08 12:44] LABS: Glucose - Point of Care 146 mg/dl (70-99)
--- NOTE | 2024-09-08 12:44 | W.PN.URO.CBU ---
Today's Communication / Plan
-
ourtpatient eval retention
Assessment / Plan
-
ongoing urinary retention in diabetic failed vt on flomax dxs include bph or atonic bladder of neuropathy of diabetes Pt aware needs urodynamics abnd cysto which are not offered during this hospital; stay Requetsed outpatient follow up
Diagnosis
-
Date of Service: September 08, 2024
-
Patient Diagnosis:
Post Op Day:
Patient Diagnosis:urinary retention failed vt
Post Op Day:
Subjective
-
frustrated but voiced undersrtanding of the need to investiagate etiology of retention
Objective
-
Vital Signs
Temp Pulse Resp BP Pulse Ox
97.5 F 74 16 133/79 99
09/08/24 07:00 09/08/24 07:00 09/08/24 07:00 09/08/24 07:00 09/08/24 07:00
Intake and Output
09/07/24 09/08/24 09/09/24
06:59 06:59 06:59
Intake Total 2410 / 2410 580 / 580
Output Total 1275 / 1275 1800 / 1800
Balance 1135 / 1135 -1220 / -1220
Intake:
Oral fluids 1100 / 1100 580 / 580
IV fluids (Total) 1300 / 1300
IV piggybacks
Output:
Urine, Dominique 1275 / 1275 1800 / 1800
Laboratory Results
09/08/24 06:35
09/08/24 06:35
Review of Systems
-
: Difficulty Voiding
Physical Exam
-
General - well developed, well nourished, no acute distress
Chest - clear bilaterally
Abdomen - soft, non-tender, positive bowel sounds, no CVAT, no incisional pain or distention
Genitalia - normal
Rectal - normal
Skin - warm & dry with no rash
Neuro - AOx3, no motor deficits
Extremities - no clubbing, no cyanosis, no edema
Incision - clean, dry
Dressing - clean, dry, intact
Care Review
Data Reviewed
Discussed with: Hospitalist
[2024-09-08] MEDS: FEOSOL 325 MG PO (13:08)
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
--- NOTE | 2024-09-08 14:32 | CM ---
Addendum entered by Hannah Tabares 09/08/24 16:48:
update to [facility], for discharge tomorrow. CM will call to protective services and send referral to [facility] for MARLON.
Original Note:
Patient seen at bedside with psych and physician. Patient wants to go home and stated that he will take medication now. CM will contact [facility] and follow up with discussions.
[2024-09-08 14:50] VITALS: BP 133/82; PULSE 78; O2SAT 100
[2024-09-08 15:00] VITALS: BP 141/83
[2024-09-08 17:27] LABS: Glucose - Point of Care 167 mg/dl (70-99)
[2024-09-08] MEDS: NOVOLOG FLEXPEN-MODERATE RESISTANCE 1 UNITS SC (17:57)
[2024-09-08 21:15] LABS: Glucose - Point of Care 113 mg/dl (70-99)
[2024-09-08] MEDS: LANTUS 0.24 UNITS SC (21:56)
[2024-09-08 23:00] VITALS: BP 144/79
[2024-09-09] MEDS: ANCEF 10 IV ×2 (02:03→10:01)
[2024-09-09 07:35] VITALS: BP 158/85
[2024-09-09 08:16] LABS: Glucose - Point of Care 111 mg/dl (70-99)
[2024-09-09] MEDS: NOVOLOG FLEXPEN-MODERATE RESISTANCE SC ×3 (08:17→16:29)
[2024-09-09] MEDS: FLOMAX 0.8 MG PO (08:17)
[2024-09-09] MEDS: NOVOLOG FLEXPEN 10 UNITS SC ×3 (08:17→16:25)
[2024-09-09] MEDS: HEPARIN 5000 UNITS SC (08:26)
[2024-09-09] MEDS: NORVASC 10 MG PO (10:01)
[2024-09-09] MEDS: ZESTRIL 10 MG PO (10:02)
[2024-09-09 11:22] LABS: Glucose - Point of Care 116 mg/dl (70-99)
--- NOTE | 2024-09-09 12:22 | W.PN.UPDATE ---
Update Note
Progress Note Update
patient seen chart reviewed. spoke with nursing and with dr morrison and niranjan. the patient was in a decent frame of mind. he is very willing to talk about important issues. we addressed his consult with urology. i had read the consult and was able
to explain to mr salas how urology was framing the problem that has heretofore necessitated a bryson. he clearly did not understand the underlying factors. explained that his out pt appt will do urodynamic testing with a goal to understand exactly
what is going on and address the issues. also told him that the consult included a reference to his doing intermittent catheterization instead of a bryson. he is very willing to do followup as soon as possilbe. we also addressed medication taking.
he did take bp meds this am as per nursing. discussed the importance of taking meds as precribed especially bp meds. it may not matter exactly what time of day he takes some of his meds but he should discuss w his doctor if there are issues that
trouble him w meds. i was interested to understand why mr salas perceives himself as so distant from his family . niranjan has told me that satya seems to want to be invovled. he told me about his relationship with his md/phd son who does research in [facility] and his daughter who works for [employer]. it is his perception that they simply do not care to be involved in his life but he presents himself as having done everything he could for them as a father. i suggested that he consider an out pt
therapist to talk further about this and see if he could not gain some insight into his family relationships and work on a reconciliation. i asked him if he wanted to see psych over the weekend. it will be a different psychiatrist each day and he
felt it would be too hard for him to open up to someone new. if he is still here next wed which i doubt after speaking to dr morrison i would see him. otherwise will sign off.
[2024-09-09] MEDS: FEOSOL 325 MG PO (12:25)
[2024-09-09] MEDS: MIRALAX 17 GRAMS PO (12:29)
--- NOTE | 2024-09-09 13:29 | W.PN.HOSP.TC ---
Addendum entered and electronically signed by Maude Lomeli MD 09/09/24 14:40:
I saw and evaluated the patient independently. I reviewed the resident�s note and agree with findings and plan as documented by Dr. Lambert.
GENERAL: well developed, well nourished, male in no apparent distress
HEENT: NC/AT -- no O2 requirements
HEART: regular rate and rhythm, +S1, +S2
LUNGS : clear to auscultation bilaterally
ABDOM: soft, nontender, nondistended, + bowel sounds
EXT: no cyanosis, clubbing, or edema--left BKA
NEUROLOGIC: weak
: chronic bryson
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
12 hours for 10 days--cont tamsulosin--apprec urology--f/u 09/20/24 at 1PM
Chronic Urinary Retention likely due to BPH--cont chronic bryson--apprec urology f/u at d/c
New onset diarrhea--likely due to ABX--C. difficile negative for toxin, positive for antigen--Start Imodium as needed--held bowel regimen
Questionable Descending Colon Diverticulitis--doubt--no pain--only CT finding--Timing of symptoms seems to suggest catheter manipulation as likely source > GI - Will need eventual colonoscopy (previously recommended re: iron deficiency). Patient
never had a colonoscopy. Advised about the importance of getting a colonoscopy as outpatient.
Essential Hypertension - Stable. Continue home meds with holding parameters.
DM-II--Poor glycemic control with hemoglobin A1c 9.8 but heading in the right direction from 14.5 in June this year-- Continue basal:bolus insulin regimen- Follow glucose and cover with SSI as needed.
Chronic Iron Deficiency Anemia--cont iron--need outpt GI work up
R Ankle Wound/L Stump Wound (POA)-- Wound Care eval for local care recommendations.
DVT Proph--SC Heparin
Code Status-- Full code
Appreciate psych--patient does appear to have capacity to make his own decisions--wants to go home--d/c
Original Note:
Today's Communication/Plan
-
PT/OT recommends retirement facility, however the patient refuses to go to SNF and would like to go back home. Discharging the patient home today with VN/home PT/OT
Transition to oral Keflex 500 mg every 12 hours for 10 days.
Follow-up with outpatient urology.
Follow-up with outpatient GI for routine colonoscopy.
Assessment / Plan
Assessment / Plan
A/P: Patient is an 74y M with PMH significant for HTN, DM-II and urinary retention who presents to ED complaining of fevers, malaise and abdominal pain for the past 24 hours.
CAUTI
Bacteremic UTI positive for protease mirabilis
Sepsis secondary to the above
Chronic Urinary Retention
BPH
- Patient presents with fever, tachycardia, leukocytosis and UA suggestive of infection. Afebrile today. Improving white count.
- Suspect new infection during Bryson removal / subsequent replacement over the past 2 days.
- Transition to cefazolin 2g IV q8. Proteus Mirabilis recovered on urine cx and blood cultures x 2/2 , sensitivities available.
-Repeat blood cultures shows no growth till date , await final results.
- Will transition to oral abx for 2 weeks from the start of negative blood culture at discharge.
- Maintain Bryson catheter for now. Continue tamsulosin.
- Patient will need outpatient follow-up with Urology for next steps given failed TOV after 1 month of Bryson decompression.
- Follow white count and temperature curve
- Appreciate psychiatry input
- Discharge to home today, transition to oral Keflex 500 mg every 12 hours for 10 days
PT/OT recommends retirement facility, however the patient refuses to go to SNF and would like to go back home. Discharging the patient home today with VN/home PT/OT. Advised patient for outpatient follow-up with urology on 09/20/2024.
New onset diarrhea-- resolved
C. difficile negative for toxin
Start Imodium as needed
Questionable Descending Colon Diverticulitis
- Patient has no LLQ abdominal pain or other such complaints at present.
- Timing of symptoms seems to suggest catheter manipulation as likely source > GI.
- IV Zosyn as noted above.
- Follow for any new / worsening symptoms.
- Will need eventual colonoscopy (previously recommended re: iron deficiency). Patient never had a colonoscopy. Advised about the importance of getting a colonoscopy as outpatient.
Benign Hypertension
- Stable. Continue home meds with holding parameters.
DM-II
-Poor glycemic control with hemoglobin A1c 9.8 but heading in the right direction from 14.5 in June this year.
- Stable. Continue basal : bolus insulin regimen. Blood sugars are under goal so far.
- Follow glucose and cover with SSI as needed.
-
Chronic Iron Deficiency Anemia
- Stable / improved. Hgb up from prior values.
- Continue iron supplementation.
- Eventual GI eval / endoscopic exam as noted above.
R Ankle Wound
L Stump Wound
- Wound Care eval for local care recommendations.
DVT Prophylaxis: Subcut Heparin
Code Status: Full
Anticipated Discharge: Today
Subjective/Interval History
-
Date of Service: September 09, 2024
No overnight events
Objective Data
-
Vital Signs:
Vital Signs
Temp Pulse Resp BP Pulse Ox
97.6 F 82 18 151/88 97
09/09/24 07:35 09/09/24 10:02 09/09/24 07:35 09/09/24 10:02 09/09/24 11:41
I&O
04/10/25 04/11/25 04/12/25
06:59 06:59 06:59
Intake Total 580 / 580 2160 / 2160 660 / 660
Output Total 1800 / 1800 2200 / 2200
Balance -1220 / -1220 -40 / -40 660 / 660
Review of Systems
-
History Source: Patient
All other systems: Reviewed and negative
Physical Exam
-
General: Comfortable
HEENT: Normocephalic and Atraumatic
Respiratory: Clear to Auscultation
Cardiac: Regular Rhythm and S1/S2
GI: Soft, Nontender and Nondistended
Genito-urinary: Bryson
Musculoskeletal: No Edema
Neuro: AO x 3
Psych: Calm
Data Reviewed
-
Labs: Labs Reviewed by me and Discussed with Physician
--- NOTE | 2024-09-09 14:15 | CM ---
Patient seen at [facility] with physician. Patient states he wants to go home with Tee, [facility] is aware of planned discharge and accepting. Patient very determined to go home IMM completed. Patient calling son in law for transportation home. Patient
stated his ride will be here at 4pm. CM sent referral to [facility] and called to intake requesting review and assessment. 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 CM will continue to follow for discharge plan.
Plan; home with [facility] referral for assessment
--- NOTE | 2024-09-09 15:07 | W.PN.URO.CBU ---
Today's Communication / Plan
-
uds and vidit ths week
Assessment / Plan
-
ongoing urinary retention in diabetic failed vt on flomax dxs include bph or atonic bladder of neuropathy of diabetes Pt aware needs urodynamics abnd cysto which are not offered during this hospital; stay Requetsed outpatient follow up
Diagnosis
-
Date of Service: September 09, 2024
-
Patient Diagnosis:
Post Op Day:
Patient Diagnosis:
Post Op Day:
Patient Diagnosis:urinary retention failed vt
Post Op Day:
Subjective
-
tired of bryson getting uds this week
Objective
-
Vital Signs
Temp Pulse Resp BP Pulse Ox
97.6 F 82 18 151/88 97
09/09/24 07:35 09/09/24 10:02 09/09/24 07:35 09/09/24 10:02 09/09/24 11:41
Intake and Output
09/08/24 09/09/24 09/10/24
06:59 06:59 06:59
Intake Total 580 / 580 2160 / 2160 660 / 660
Output Total 1800 / 1800 2200 / 2200
Balance -1220 / -1220 -40 / -40 660 / 660
Intake:
Oral fluids 580 / 580 2160 / 2160 660 / 660
Output:
Urine, Bryson 1800 / 1800 2200 / 2200
Laboratory Results
09/08/24 06:35
09/08/24 06:35
Review of Systems
-
: Difficulty Voiding
Physical Exam
-
General - well developed, well nourished, no acute distress
Chest - clear bilaterally
Abdomen - soft, non-tender, positive bowel sounds, no CVAT, no incisional pain or distention
Genitalia - normal
Rectal - normal
Skin - warm & dry with no rash
Neuro - AOx3, no motor deficits
Extremities - no clubbing, no cyanosis, no edema
Incision - clean, dry
Dressing - clean, dry, intact
Care Review
Data Reviewed
Discussed with: Hospitalist
[2024-09-09 15:41] VITALS: BP 134/80
[2024-09-09 16:25] LABS: Glucose - Point of Care 80 mg/dl (70-99)
--- NOTE | 2024-09-09 17:11 | W.DCSUMMARY ---
Addendum entered and electronically signed by Maude Lomeli MD 09/10/24 07:28:
Read, reviewed, and agree. See same day progress note for additional details. Time spent coordinating care, DC planning, review of DC plan of care with resident, transition of care, review of records in EMR, med rec, consults, notes, d/w
consultants, nursing, family, and CM = 31 minutes
Original Note:
Discharge Summary
Discharge Data
Date of Admission: 09/02/24
Date of Discharge: 09/09/24
-
Pending Results: No
Hospital Course
Discharging Physician : Dr Chuck Lambert, Dr Maude Lomeli
Disposition : Home
Primary care physician : Unknown
Principal Discharge diagnosis :
Chronic Urinary Retention likely due to BPH
Questionable Descending Colon Diverticulitis
Chronic Discharge diagnosis :
Essential hypertension
Type 2 diabetes mellitus
Chronic iron-deficiency anemia
Chronic indwelling Dominique's catheter
Hospital Course :
74-year-old male presented with sepsis due to Proteus mirabilis, catheter associated UTI with bacteremia. Blood and urine culture was positive for protease mirabilis. He was on IV cefazolin. Urology was consulted and they recommend outpatient
follow-up for urodynamic testing. Type 2 diabetes is poorly controlled with hemoglobin A1c 9.8 on basal and bolus insulin regime. During the hospital stay psych was consulted as patient was refusing to take oral medications and physical therapy.
PT/OT recommended [facility] facility however however patient refused and requested to go home. On the day of discharge his vitals are unremarkable. He is going home on Dominique's catheter and we advised him to follow-up with urology outpatient
which is scheduled on 09/20. Also recommend outpatient GI workup for chronic iron deficiency anemia. Transition to oral Keflex 500 mg twice daily for additional 10 days to complete the course.
Important imaging findings :
09/02/24 Abdominal/pelvis CT-
Probable acute uncomplicated diverticulitis of the descending colon. Differential includes colitis.
Procedure findings : None
Discharge Plan
-
Patient Disposition: Home (Routine Discharge)
Discharge Diagnosis/Procedures: Sepsis due to Proteus mirabilis, CAUTI with bacteremia
Chronic urinary retention due to BPH
Questionable descending colon diverticulitis
Condition: Fair
Diet: Diabetic, Carb Controlled
Activity: With assistance
Driving Restrictions: As prior to admission
Bathing Restrictions: None
Other Services: VN, PT and OT
Activity Restrictions/Additional Instructions:
Wound Care Instructions
R lateral ankle: clean with soap and water, smear of honey gel to ulcer daily, cover with dry dressing.
mineral oil for dry skin on R leg/foot and buttocks daily.
offload heel when in bed pillow under calve
air cushion can take upon discharge.
Follow up at wound care center call for an appointment.
Referrals:
Chuck Lambert MD, Resident [Family Practice Resident Year2] - in less than 1 week
Shahriar Alcaraz MD [Active] - 09/20/24 1:00 pm
()
NONE,* [Family Provider] - in less than 1 week
Additional Discharge Medication Instructions: Start taking cephalexin 500 mg 1 tablet every 12 hours for 10 days
Please follow-up with urology outpatient on 09/20/2024 at 1 PM.
Continue all other home medications.
If you don't have a family physician then you can reach out to [facility] family medicine residency practice #[phone]
Prescriptions:
New
cephalexin 500 mg capsule
500 mg PO BID 10 Days Qty: 20 0RF
Continued
insulin aspart U-100 [Novolog FlexPen U-100 Insulin] 100 unit/mL (3 mL) Insulin Pen
12 unit SC MEALS Qty: 0 0RF
acetaminophen [Tylenol] 325 mg Tablet
650 mg PO Q4H
insulin glargine 100 unit/mL Solution
30 unit SC HS
ammonium lactate 12 % Lotion
1 applic TOPICAL DAILY
magnesium hydroxide [Milk of Magnesia] 400 mg/5 mL Suspension
30 ml PO DAILY
sertraline 25 mg Tablet
25 mg PO DAILY
tamsulosin 0.4 mg capsule
0.8 mg PO DAILY
ferrous sulfate [FeroSul] 325 mg (65 mg iron) tablet
325 mg PO DAILY
amlodipine 10 mg Tablet
10 mg PO DAILY Qty: 30 0RF
lisinopril 10 mg Tablet
10 mg PO DAILY Qty: 0 0RF
Discharge Orders:
Discharge Patient (As Directed); Ordered 09/09/24
Ordered By: Chuck Lambert
Discharge Date and Time
Print Language: UKRAINIAN
== END 2024-09-09 17:37 | disposition home health service (06) | DRG 698 ==
LOC: 2 NORTH 19:48
PROVIDERS: Internal Medicine; Student in an Organized Health Care Education/Training Program; ADMITTING PHYSICIAN Hospitalist; ATTENDING PHYSICIAN Internal Medicine; CONSULT PHYSICIAN Specialist; EMERGENCY PHYSICIAN Emergency Medicine; OTHER PHYSICIAN Psychiatry & Neurology Psychiatry
DX: T83.518A Infection and inflammatory reaction due to other urinary catheter, initial encounter (principal); A41.59 Other Gram-negative sepsis; N39.0 Urinary tract infection, site not specified; K57.32 Diverticulitis of large intestine without perforation or abscess without bleeding; Y84.6 Urinary catheterization as the cause of abnormal reaction of the patient, or of later complication, without mention of misadventure at the time of the procedure; N40.1 Benign prostatic hyperplasia with lower urinary tract symptoms; I10 Essential (primary) hypertension; E11.40 Type 2 diabetes mellitus with diabetic neuropathy, unspecified; E11.65 Type 2 diabetes mellitus with hyperglycemia; D50.9 Iron deficiency anemia, unspecified; Z79.4 Long term (current) use of insulin; Z89.512 Acquired absence of left leg below knee
CPT/HCPCS: 51702; 74177; 80048; 80053; 81003; 81015; 82962; 83036; 83605; 85025; 85027; 87040; 87077; 87086; 87149; 87186; 87205; 87324; 87449; 87502; 87811; 93005; 94760; 96365; 97116; 97163; 97167; 97530; 97535; 99285; Q9967

== ENCOUNTER → 2024-10-22 15:17 | Outpatient (REF) | payer MEDICARE, SELFPAY | LOC: CLAB 15:17 | PROVIDERS: ATTENDING PHYSICIAN Specialist | DX: N39.0 Urinary tract infection, site not specified (principal) | CPT/HCPCS: 87086 ==